=== PATIENT | female | born 1945 | race Caucasian/White ===

== ENCOUNTER → 2016-09-24 | Outpatient (CLI) | payer OTHER ==
[~2016-09-24] MED LIST: ADVIN10/60 INH; AZIT500T26 PO; AZITTAB PO; CLR10 PO; FLUT0.15 NAE; HYDR-5688 PO; IBUP-1105 PO; LEVO1TAB33 PO; LORA-741 PO; MOME200A INH; TRAM-10 PO; VNTHFA/IN INH; ZNTT/150 PO; advair diskus INH; peri-colace PO; prednisone taper PO
[2016-09-24 17:30] LABS: BASO % 0.3 %; BASO ABS # 0.02 K/uL (0-0.2); COMPLETE YES; EOS % 2.2 %; HEMATOCRIT 39.2 % (37-47); IG% 0.1 %; LYMPH % 20.5 %; LYMPH ABS # 1.42 K/uL (1.2-3.4); MEAN CELL VOLUME 90.7 fL (80-100); MEAN CORPUSCULAR HEMOGLOBIN 30.6 pg (25-34); MEAN CORPUSCULAR HGB CONC 33.7 g/dl (32-36); MEAN PLATELET VOLUME 9.5 fL (7.4-10.4); MONO % 5.5 %; NEUT % 71.4 %; PLATELET COUNT 299 K/uL (130-400); RED BLOOD COUNT 4.32 M/uL (4.2-5.4); WHITE BLOOD COUNT 6.91 K/uL (4.8-10.8)
[2016-09-24 17:48] LABS: ALT/SGPT 11 U/L (12-78); BLOOD UREA NITROGEN 16 mg/dl (7-18); BUN/CREATININE RATIO 20.9 (10-20); CALCIUM 8.6 mg/dl (8.5-10.1); CARBON DIOXIDE 27 mmol/L (21-32); CHLORIDE 105 mmol/L (98-107); CHOLESTEROL 212 mg/dl (0-200); CREATININE 0.77 mg/dl (0.60-1.20); GLUCOSE 83 mg/dl (70-99); POTASSIUM 3.5 mmol/L (3.5-5.1); SODIUM 141 mmol/L (136-145)
[2016-09-24 17:52] LABS: ALB/GLOB RATIO 1.2 (0.9-2); ALKALINE PHOSPHATASE 112 U/L (45-117); AST/SGOT 11 U/L (15-37); CHOLESTEROL/HDL RATIO 3.9; HDL CHOLESTEROL 54 mg/dl; LDL CHOLESTEROL CALCULATED 129 mg/dl; TRIGLYCERIDES 145 mg/dl (0-150); VERY LOW DENSITY LIPOPROT CALC 29 mg/dl
--- NOTE | 2016-10-01 09:07 | CODING QUERY MEDICAL NECESSITY ---
CQSUPPORTING DIAGNOSIS NEEDED A supporting diagnosis is required for the test/procedure performed on this patient in order for us to be reimbursed by the patient's insurance. Please provide a supporting diagnosis for the following test/procedure listed below next to the test name along with your signature. *If there is no additional diagnosis for this patient that would support the following test/procedure please document that below next to the test/procedure. Test(s)/Procedure(s) that require a supporting diagnosis: DOS 09/24/16 VITAMINS AND METABOLIC FUNCTION---VITAMIN D Provider Signature: Date: Thank you Debbie Benites Health Information Management Once completed, please kindly fax back to [phone] For questions please call [phone]
== END | disposition home or self-care (01) ==
LOC: C.LABBFT 12:35
PROVIDERS: ATTEND Nurse Practitioner
DX: Z13.220 Encounter for screening for lipoid disorders (principal); R31.29 Other microscopic hematuria; M85.80 Other specified disorders of bone density and structure, unspecified site

== ENCOUNTER → 2016-12-23 | Outpatient (CLI) | payer OTHER ==
[~2016-12-23] MED LIST changes: +ALBU0.633 NEB; +CALC500C3 PO; +PERI-COLACE PO
[2016-12-23 17:51] LABS: RHEUMATOID FACTOR < 10.0 U/mL (0-15)
[2016-12-23 19:23] LABS: LYME DISEASE AB IGM NEG (NEG)
[2016-12-23 19:26] LABS: LYME DISEASE AB IGG NEG (NEG)
[2016-12-28 14:00] LABS: ANA TITER > OR = 1:1280 TITER (<1:40)
--- NOTE | 2017-01-05 13:10 | CODING QUERY MEDICAL NECESSITY ---
CQSUPPORTING DIAGNOSIS NEEDED A supporting diagnosis is required for the test/procedure performed on this patient in order for us to be reimbursed by the patient's insurance. Please provide a supporting diagnosis for the following test/procedure listed below next to the test name along with your signature. *If there is no additional diagnosis for this patient that would support the following test/procedure please document that below next to the test/procedure. Test(s)/Procedure(s) that require a supporting diagnosis: DOS 12/23/16 VITAMIN B12 ORDERED BY GUADALUPE COOPER Provider Signature: Date: Thank you Debbie Benites Health Information Management Once completed, please kindly fax back to [phone] For questions please call [phone]
== END | disposition home or self-care (01) ==
LOC: C.LABBFT 14:03
PROVIDERS: ATTEND Nurse Practitioner
DX: E55.9 Vitamin D deficiency, unspecified (principal); M79.1 Myalgia; M25.50 Pain in unspecified joint; R53.83 Other fatigue

== ENCOUNTER → 2017-01-20 | Outpatient (CLI) | payer OTHER ==
--- NOTE | 2017-01-20 15:22 | DIAGNOSTIC IMAGING REPORT ---
LEFT WRIST 4 VIEWS CLINICAL HISTORY: Long-term NSAID use. Left wrist pain. FINDINGS: 4 views of left wrist are obtained. No prior studies are available for comparison at the time of dictation. The skeletal structures are osteopenic. No fracture is seen. Mild osteoarthritic change is identified at the first carpometacarpal articulation. The joint spaces of the wrist are otherwise preserved. No erosive change is seen. The overlying soft tissues are within normal limits. IMPRESSION: Osteopenia and minimal degenerative change as above. No acute bony abnormality is identified in the left wrist. Electronically signed by: Jerald Dennis M.D. 01/20/2017 3:21 PM Dictated Date/Time: 01/20/2017 3:20 PM
--- NOTE | 2017-01-20 15:23 | DIAGNOSTIC IMAGING REPORT ---
RIGHT WRIST MIN 3 VIEWS ROUTINE CLINICAL HISTORY: Bilateral wrist and hand pain. Long-term NSAID use. COMPARISON: None FINDINGS: Alignment of the right wrist is anatomic. There is no fracture or suspicious lesion. A few scattered lucent lesions with sclerotic margins within the wrist favor cysts. No definite erosions are identified. Minimal arthritis is noted within several articulations. IMPRESSION: 1. 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 2. A few small lucent lesions with sclerotic margins within the right wrist which favor cysts over erosions. Electronically signed by: Balbir Shirley M.D. 01/20/2017 3:21 PM Dictated Date/Time: 01/20/2017 3:20 PM
--- NOTE | 2017-01-20 15:24 | DIAGNOSTIC IMAGING REPORT ---
RIGHT HAND MIN 3 VIEWS ROUTINE CLINICAL HISTORY: Bilateral wrist and hand pain. Long-term NSAID use. COMPARISON: None FINDINGS: No acute fracture is identified. There is moderate joint space narrowing and osteophytosis within multiple distal interphalangeal joints of the right hand. No erosions are identified. IMPRESSION: 1. No acute fracture or dislocation of the right hand. 2. 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 3. No radiographic evidence of an erosive/inflammatory arthropathy. Electronically signed by: Balbir Shirley M.D. 01/20/2017 3:23 PM Dictated Date/Time: 01/20/2017 3:22 PM
--- NOTE | 2017-01-20 15:29 | DIAGNOSTIC IMAGING REPORT ---
LEFT HAND MIN 3 VIEWS ROUTINE CLINICAL HISTORY: Bilateral wrist and hand pain. Long-term NSAID use. COMPARISON: None FINDINGS: Alignment of the left hand is anatomic. No fracture or suspicious lesion is present. There is joint space narrowing and osteophytosis within multiple interphalangeal joints of the left hand. No erosions are identified. Osteophytosis of the interphalangeal joint of the left thumb is noted. IMPRESSION: 1. No acute fracture. 2. Moderate osteoarthritis of multiple articulations of the left hand. 3. No radiographic evidence of erosive/inflammatory arthropathy. Electronically signed by: Balbir Shirley M.D. 01/20/2017 3:27 PM Dictated Date/Time: 01/20/2017 3:26 PM
[2017-01-20 16:08] LABS: TOTAL IRON BINDING CAPACITY 272 mcg/dl (250-450)
[2017-01-25 07:29] LABS: ANTI-CENTROMERE AB <1.0 NEG AI (<1.0 NEG); ANTI-SS-A <1.0 NEG AI (<1.0 NEG); ANTI-SS-B <1.0 NEG AI (<1.0 NEG); DNA ds CRITHIDIA NEGATIVE (NEGATIVE); PARVOVIRUS IgG INDEX 0.5 (<0.9); PARVOVIRUS IgM INDEX 0.1 (<0.9); Sm Antibody <1.0 NEG AI (<1.0 NEG)
[2017-01-26 11:14] LABS: ANA TITER > OR = 1:1280 TITER (<1:40)
== END | disposition home or self-care (01) ==
LOC: C.RAD1850 14:33
PROVIDERS: ATTEND Internal Medicine Rheumatology
DX: Z79.1 Long term (current) use of non-steroidal anti-inflammatories (NSAID) (principal); M19.041 Primary osteoarthritis, right hand; M19.042 Primary osteoarthritis, left hand; M85.88 Other specified disorders of bone density and structure, other site; R22.31 Localized swelling, mass and lump, right upper limb

== ENCOUNTER → 2017-03-23 | Outpatient (CLI) | payer OTHER ==
[~2017-03-23] MED LIST changes: -ALBU0.633 NEB; -CALC500C3 PO; -PERI-COLACE PO
== END | disposition home or self-care (01) ==
LOC: C.MAMM 12:56
PROVIDERS: ATTEND Internal Medicine Rheumatology
DX: M85.80 Other specified disorders of bone density and structure, unspecified site (principal); M81.0 Age-related osteoporosis without current pathological fracture

== ENCOUNTER → 2017-04-05 | Outpatient (CLI) | payer OTHER ==
--- NOTE | 2017-04-05 12:56 | DIAGNOSTIC IMAGING REPORT ---
CT LUNG SCREENING, LOW DOSE WITH COMPUTER-AIDED DETECTION (CAD) CLINICAL HISTORY: Smoking history. Lung cancer screening. COMPARISON STUDY: No previous studies for comparison. CT DOSE: 86.25 mGycm TECHNIQUE: Low-dose helical CT was acquired without intravenous contrast from lung apices to bases and reconstructed at 2.5 mm every 2 mm. CAD was utilized for this study. A dose lowering technique was utilized adhering to the principles of ALARA. FINDINGS: Thyroid: Imaged portions of the thyroid gland are normal in appearance. Thoracic aorta: There is after sclerotic calcification of the thoracic aorta, with is normal in caliber and demonstrates standard 3 vessel arch anatomy. Heart: The heart is normal in size and there is trace pericardial effusion. The coronary arteries are densely calcified. Lungs and pleural spaces: Emphysema is identified. A fat-containing Bochdalek hernia is present the right lung base. There is no airspace consolidation or pleural effusion. Minimal secretions are noted in the right mainstem bronchus. Intraluminal nodularity is seen within the left mainstem bronchus on image #145. The trachea is clear. Linear atelectasis versus scarring is noted in the anterior right upper lobe. There is an 8 mm groundglass focus in the left lower lobe seen on image #190 and a 6 cm groundglass focus in the left upper lobe seen on image #78. A 2 mm right upper lobe nodule is seen on image #105. Mediastinum: There is no mediastinal lymphadenopathy. Susan: Not well assessed without IV contrast. Axilla: There is right axillary lymphadenopathy. The largest node is seen on image #59 and measures 3.3 x 2.7 cm. No left axillary adenopathy is seen. Upper abdomen: There is a tiny hiatal hernia. The spleen is markedly enlarged. Skeletal structures: The skeletal structures are osteopenic. Advanced arthritic change is seen in the shoulders. Degenerative change is also seen throughout the thoracic spine. There are no lytic or blastic osseous lesions. IMPRESSION: 1. There is marked splenomegaly as well as bulky right axillary lymphadenopathy. This constellation of findings is highly concerning for a lymphoproliferative disorder such as lymphoma. Follow-up imaging of the right breast is recommended given the right axillary involvement. 2. Emphysema. 3. There is no airspace consolidation or pleural effusion. 4. There are 2 small groundglass foci identified as well as a 2 mm pulmonary nodule. These findings be reassessed at follow-up. See below. 5. Intraluminal nodularity seen within the left mainstem bronchus. Although this may simply represent secretions, attention at follow-up is recommended. If clinically warranted short-term follow-up CT scan versus bronchoscopy could be considered for reassessment. CAD FINDINGS: Nodule 1 Category: 2 Nodule 1 Status: Baseline Nodule 1 Description: Non-solid Nodule 1 Lesion ID: 9 Nodule 1 Slice Number: 83 Nodule 1 Volume (mm3): 84 Nodule 1 Major [place] mm: 7.2 Nodule 1 Minor [place] mm: 5.5 Nodule 2 Category: 2 Nodule 2 Status: Baseline Nodule 2 Description: Solid Nodule 2 Lesion ID: 6 Nodule 2 Slice Number: 126 Nodule 2 Volume (mm3): 4 Nodule 2 Major [place] mm: 2.2 Nodule 2 Minor [place] mm: 2.2 Nodule 3 Category: 2 Nodule 3 Status: Baseline Nodule 3 Description: Non-solid Nodule 3 Lesion ID: 8 Nodule 3 Slice Number: 141 Nodule 3 Volume (mm3): -1 Nodule 3 Major [place] mm: -1.0 Nodule 3 Minor [place] mm: -1.0 Overall Lung RADS Category: 2 Lung RADS Management Recommendation: Lung-RADS 2: Continue annual screening in 12 months. Lung RADS Follow Up Date: 2018-04-05 Lung RADS Nodule ID: [id number] Electronically signed by: Jerald Dennis M.D. 04/05/2017 12:55 PM Dictated Date/Time: 04/05/2017 12:39 PM
== END | disposition home or self-care (01) ==
LOC: C.CTS 11:02
PROVIDERS: ATTEND Nurse Practitioner
DX: Z87.891 Personal history of nicotine dependence (principal); R22.31 Localized swelling, mass and lump, right upper limb; J43.9 Emphysema, unspecified

== ENCOUNTER → 2017-04-09 | Outpatient (CLI) | payer OTHER ==
[2017-04-09 17:33] LABS: BASO % 0.2 %; BASO ABS # 0.02 K/uL (0-0.2); COMPLETE YES; HEMATOCRIT 36.3 % (37-47); IG% 0.1 %; LYMPH % 10.7 %; LYMPH ABS # 0.92 K/uL (1.2-3.4); MEAN CORPUSCULAR HEMOGLOBIN 28.7 pg (25-34); MEAN CORPUSCULAR HGB CONC 32.2 g/dl (32-36); MEAN PLATELET VOLUME 9.5 fL (7.4-10.4); MONO % 6.5 %; NEUT % 80.5 %; PLATELET COUNT 163 K/uL (130-400); RED BLOOD COUNT 4.08 M/uL (4.2-5.4); WHITE BLOOD COUNT 8.56 K/uL (4.8-10.8)
[2017-04-09 17:39] LABS: ALT/SGPT 14 U/L (12-78); CREATININE 0.69 mg/dl (0.60-1.20)
[2017-04-09 17:42] LABS: ALKALINE PHOSPHATASE 170 U/L (45-117); AST/SGOT 27 U/L (15-37)
== END | disposition home or self-care (01) ==
LOC: C.LABBFT 12:22
PROVIDERS: ATTEND Internal Medicine Rheumatology
DX: R76.8 Other specified abnormal immunological findings in serum (principal); M13.0 Polyarthritis, unspecified; R70.0 Elevated erythrocyte sedimentation rate; Z51.81 Encounter for therapeutic drug level monitoring; Z79.899 Other long term (current) drug therapy

== ENCOUNTER → 2017-04-14 | Outpatient (CLI) | payer OTHER ==
--- NOTE | 2017-04-14 16:01 | MAMMOGRAPHY REPORT ---
BILATERAL DIGITAL DIAGNOSTIC MAMMOGRAM TOMOSYNTHESIS WITH CAD AND TARGETED RIGHT ULTRASOUND: 7 CLINICAL HISTORY: The patient reports a palpable right axillary lump. She also had a recent chest CT which showed right axillary adenopathy and splenomegaly. She has a history of rheumatoid arthritis and lupus. TECHNIQUE: Breast tomosynthesis in addition to standard 2D mammography was performed. Current study was also evaluated with a Computer Aided Detection (CAD) system. Bilateral CC and MLO 2-D and tomosy nthesis images and spot compression right MLO views were obtained. COMPARISON: Comparison is made to exams dated: 12/12/2012 mammogram, 07/25/2009 mammogram, and 07/25/20 mammogram. BREAST COMPOSITION: There are scattered areas of fibroglandular density in both breasts. FINDINGS: A triangle marker julien the site of the palpable lump in the right axillary region. At th e site of the palpable lump there are abnormally enlarged right axillary lymph nodes, the largest mayela suring 4.6 cm in size. The remainder of both breasts are negative, without suspicious masses, calcif ications, or areas of architectural distortion noted. A few scattered bilateral benign-appearing pilar cifications are again noted. Targeted ultrasound was performed of the area of the right axilla in the region of the palpable lump. At the site of the palpable lump there is an abnormally enlarged right axillary lymph node which me asures 4.0 x 2.2 cm. The lymph node demonstrates significant cortical thickening. Other adjacent mo rphologically abnormal right axillary lymph nodes are also seen, which are abnormally rounded in shap e and demonstrate cortical thickening and had loss of the normal fatty hilum. One of the lymph nodes measures 1.2 cm while another measures 1.1 cm. The lymph nodes are indeterminate and ultrasound ann ded core needle biopsy of the dominant lymph nodes is recommended for further evaluation. IMPRESSION: ACR BI-RADS CATEGORY 4: SUSPICIOUS, TARGETED ULTRASOUND ACR BI-RADS CATEGORY 4: SUSPICIO US 1. Right axillary adenopathy, with largest lymph node measuring 4.0 cm in size. The lymph nodes are indeterminate and ultrasound guided core needle biopsy of the dominant lymph node is recommended for further evaluation. 2. No mammographic evidence of malignancy in either breast. A phone call was made to the physician's office to confirm faxed results were received. Results were discussed with Dr. Lang on 04/14/2017. The patient will have the biopsy later today. Approximately 10% of breast cancers are not detected with mammography. A negative mammographic report should not delay biopsy if a clinically suggestive mass is present. Rosalba Hillman M.D. ah/:04/14/2017 12:42:00 Newsperson: Rowena PUGH)(Henny), [facility] BI-RADS Code: ACR BI-RADS Category 4: Suspicious Ultrasound BI-RADS: ACR BI-RADS Category 4: Suspici ous
== END | disposition home or self-care (01) ==
LOC: C.MAMM 11:01
PROVIDERS: ATTEND Nurse Practitioner
DX: R59.0 Localized enlarged lymph nodes (principal)

== ENCOUNTER → 2017-04-14 | Outpatient (CLI) | payer OTHER ==
--- NOTE | 2017-04-14 15:32 | Discharge Instructions ---
Discharge Instructions Procedure Procedure Date: Apr 14, 2017. Reason for visit: Right Axillary Lump. Discharge Discharge Date: Apr 14, 2017. Discharge Diagnosis: post right axillary lymph node biopsy Instructions Activity Recommendations: Additional Limitations (see below) Return to School/Work: no limitations Recommended Home Diet: No Limitations Provider Instructions: ACTIVITY RECOMMENDATIONS: * No lifting, pushing, pulling or exercising the affected side for three days. RETURN TO SCHOOL/WORK: * You may return to work/school after the procedure, but do not perform any strenuous activities for 24 to 48 hours. MEDICATIONS: * Tylenol (two 325 mg) every four to six hours if needed for mild pain (if not allergic to Tylenol). DIET: * Resume previous diet. SPECIAL CARE INSTRUCTIONS: * Keep biopsy site dry for 24 hours. May shower after 24 hours, but do not soak (bathe) incision. * May remove Tegaderm (plastic patch) tomorrow AFTER showering. * Leave the steri-strips on for one week. Allow the steri-strips to fall off by themselves. If not off after one week, you may remove them. You may place a Bandaid crosswise over the strips, if desired. * Apply ice 10 minutes on and 10 minutes off as needed. * Wear a bra at bedtime to sleep more comfortably for 2-3 days. * Your referring physician should have the results after approximately 5 to 7 business days. * Call for unusual bleeding, fever, drainage, etc or if you have any questions call [phone] during normal business hours or after hours call Dr Clemens, . FOLLOW UP VISIT: Follow-up with Referring Physician as scheduled. Allergies Coded Allergies: Iodine (Verified Allergy, Unknown, RASH AND DIFFICULTY BREATHING, 06/29/16) Adan Beltran Recommendations: Call your doctor if: * Temperature above 101 degrees * Pain not relieved by pain medicine ordered * There is increased drainage or redness from any incision * You have any unanswered questions or concerns. Your Doctors Instructions noted above were prepared by provider Shy Clemens. Patient Signature Section: Patient Instructions Signature Page Diamond Benson Patient (or Guardian) Signature/Date: I have read and understand the instructions given to me by my caregivers. Caregiver/RN/Doctor Signature/Date: The above-named patient and/or guardian has received patient instructions on this date. + Original Patient Signature Page (only) stays with chart. Please make copy for patient.
--- NOTE | 2017-04-15 13:58 | MAMMOGRAPHY REPORT ---
ULTRASOUND GUIDED BIOPSY RIGHT BREAST: 04/14/2017 CLINICAL HISTORY: Palpable lump in the right axilla. Also suspicious lymph node identified on recent CT. Patient presented for tissue sampling. COMPARISON: Comparison is made to exams dated: 04/14/2017 mammogram - [facility], 1 08/28/2013 mammogram, 12/12/2012 mammogram, 07/25/2009 mammogram, and 07/25/2009 mammogram. PATIENT CONSENT: The procedure, risks and benefits were discussed with the patient and informed conse nt was obtained both verbally and in writing. Specific risks to this procedure include: bleeding, in fection, puncture of adjacent structure, nontarget biopsy, sampling error, pain, metal allergy and me dication reaction. PROCEDURE DESCRIPTION: A time out was performed and the abnormal lymph node in the right axilla was a greed as the site of biopsy. The skin of the right axilla was prepped and draped in the usual sterile fashion. The abnormal lymph node was identified and chosen as target for biopsy. Subcutaneous and i ntraparenchymal 1% buffered lidocaine, with and without epinephrine, was administered as local anesth esia. First, 3 fine-needle aspiration biopsy passes were obtained with 22-gauge needles and rinsed i n RPMI. Then, a skin incision was made. Through the incision, 3 samples were taken with an 18 gauge quick core biopsy device. A ribbon shaped metallic marker was placed within the lymph node after the biopsies. Hemostasis was achieved after manual compression. The patient tolerated the procedure wel l and there was no immediate complication. The samples were sent to the pathology department in appr opriately labeled containers. The final sonographic image obtained during the biopsy demonstrates the ribbon-shaped clip within the lymph node. Post procedure mammography was deferred. Additional targeted ultrasound was performed in the left axilla at the patient's request. 2 morpholo gically normal lymph nodes within cortices are identified. There is no evidence of suspicious left a xillary lymphadenopathy. IMPRESSION: ULTRASOUND GUIDED BIOPSY Status post ultrasound-guided core needle biopsy and ultrasound-guided fine-needle aspiration biopsy of a morphologically abnormal lymph node in the right axilla. A biopsy marker was placed within the lymph node after the biopsies. The patient will receive notification of the results from her referring physician. Shy Clemens M.D. ay/:04/14/2017 16:04:09 Fixed Interest Dealer: Drake RUTHERFORD(R)(M), [facility]
== END | disposition home or self-care (01) ==
LOC: C.MAMM 14:08
PROVIDERS: ATTEND Nurse Practitioner
DX: N63 Unspecified lump in breast (principal); D47.9 Neoplasm of uncertain behavior of lymphoid, hematopoietic and related tissue, unspecified; R59.0 Localized enlarged lymph nodes

== ENCOUNTER → 2017-04-21 | Outpatient (CLI) | payer OTHER ==
--- NOTE | 2017-04-21 12:59 | DIAGNOSTIC IMAGING REPORT ---
PET/CT HISTORY: Axillary lymphadenopathy. SINGLE PULMONARY NODULE TECHNIQUE: PET/CT was performed from the base of the skull through the pelvis following the intravenous administration of 14.7 mCi of F18-FDG. Non-contrast CT imaging was performed over the same range without breath-hold for attenuation correction of PET images and anatomic correlation, but not for primary interpretation as it is not of standard diagnostic quality. CT DOSE: COMPARISON: Chest CT 04/05/2017. FINDINGS: HEAD AND NECK: There is no significant lymphadenopathy in the imaged portions of the head and the neck. CHEST: Intense FDG uptake associated with the 3.6 x 2.3 cm right axillary lymph node. This demonstrates an SUV max of 20. There are 2 left internal mammary lymph nodes with the largest measuring 2.0 x 1.2 cm. These demonstrate abnormal FDG uptake with an SUV max of 11. There is also intense FDG uptake associated with the enlarged subcarinal lymph node which demonstrates an SUV max of 12. This lymph node measures 2.5 x 1.9 cm. No FDG avid hilar lymphadenopathy. No FDG avid pulmonary nodules. The subcentimeter nodules described on the recent chest CT appear stable. These are likely below the threshold for PET imaging. ABDOMEN/PELVIS: Trace perisplenic fluid. The spleen remains enlarged measuring 21 cm in length. There is intense FDG uptake within the spleen with an SUV max of 10. This results in medial displacement of the stomach and mild mass effect along the left kidney. A few subcentimeter retroperitoneal lymph nodes do not demonstrate abnormal FDG uptake. Subcentimeter external iliac lymph nodes do not demonstrate significant FDG uptake. Small amount of fluid/soft tissue within the left inguinal hernia. There is also a small fat-containing right inguinal hernia. MUSCULOSKELETAL: Multiple scattered foci of FDG uptake seen within the spine, ribs, and pelvic bones. No definite corresponding abnormality by CT, regardless these are highly suspicious for metastatic marrow involvement. Dominant focus is partially visualized within the left C1 lateral mass and measures 1.5 cm with an SUV max of 4.6. IMPRESSION: 1. A few lymph nodes within the right axilla and chest as well as massive splenomegaly demonstrating intense FDG uptake. This is consistent with lymphoma. 2. There are also multiple focal areas of FDG uptake seen within the osseous structures as described above. There is no corresponding abnormality by CT. Regardless, this is consistent with metastatic/marrow involvement. Electronically signed by: Gaudencio Shah M.D. 04/21/2017 12:58 PM Dictated Date/Time: 04/21/2017 12:20 PM
== END | disposition home or self-care (01) ==
LOC: C.PET 10:30
PROVIDERS: ATTEND Internal Medicine Pulmonary Disease
DX: R91.1 Solitary pulmonary nodule (principal)

== ENCOUNTER → 2017-04-28 | Outpatient (CLI) | payer OTHER ==
[2017-04-28 16:40] LABS: BASO % 0.4 %; BASO ABS # 0.03 K/uL (0-0.2); COMPLETE YES; HEMATOCRIT 36.6 % (37-47); IG% 0.4 %; LYMPH % 20.3 %; LYMPH ABS # 1.74 K/uL (1.2-3.4); MEAN CELL VOLUME 89.1 fL (80-100); MEAN CORPUSCULAR HGB CONC 31.4 g/dl (32-36); MEAN PLATELET VOLUME 9.4 fL (7.4-10.4); MONO % 4.8 %; NEUT % 72.1 %; PLATELET COUNT 239 K/uL (130-400); RED BLOOD COUNT 4.11 M/uL (4.2-5.4); WHITE BLOOD COUNT 8.56 K/uL (4.8-10.8)
[2017-04-28 16:47] LABS: PROTHROMBIN TIME (PATIENT) 10.4 SECONDS (9.0-12.0)
[2017-04-28 17:06] LABS: ALT/SGPT 11 U/L (12-78); AST/SGOT 21 U/L (15-37); BLOOD UREA NITROGEN 10 mg/dl (7-18); BUN/CREATININE RATIO 14.4 (10-20); CARBON DIOXIDE 28 mmol/L (21-32); CHLORIDE 107 mmol/L (98-107); CREATININE 0.68 mg/dl (0.60-1.20); GLUCOSE 87 mg/dl (70-99); POTASSIUM 3.9 mmol/L (3.5-5.1); SODIUM 141 mmol/L (136-145)
[2017-04-28 17:08] LABS: ALKALINE PHOSPHATASE 161 U/L (45-117)
== END | disposition home or self-care (01) ==
LOC: C.LABBFT 14:30
PROVIDERS: ATTEND Internal Medicine Pulmonary Disease
DX: R91.1 Solitary pulmonary nodule (principal)

== ENCOUNTER → 2017-05-03 | Day surgery (SDC) | payer OTHER ==
[~2017-05-03] VITALS: Ht 162.6 cm; Wt 65.0 kg
[2017-05-03] VITALS (14 sets, daily range): BP systolic 105–152; BP diastolic 50–85; PULSE 77–92; TEMP 36.4–37; O2SAT 94–100; Ht 162.6 cm; Wt 65.0 kg
[~2017-05-03] MED LIST changes: +FENTANYL CITRATE 100 MCG 2 ML CARP IV ONE; +FENTANYL CITRATE INJ 50 MCG/1 ML 2 ML VIAL IV SCH; +IPRATROPIUM BROMIDE NEB SOLN 0.02% 2.5 ML VIAL INH ONE; +LEVALBUTEROL 1.25MG/3ML NEB INH ONE; +MIDAZOLAM HCL 5 MG/ML 1 ML VIAL IV SCH; +MIDAZOLAM HCL 5 MG/ML 2ML VIAL IV ONE; +NURSING VERBAL MED ORDER ONE
--- NOTE | 2017-05-03 08:24 | History & Physical Bridge Note ---
H&P Re-Evaluation Bridge Note: I have examined the patient, reviewed the History & Physical and in the interval since the performance of the History & Physical I have noted the following changes of clinical significance: No changes noted
--- NOTE | 2017-05-03 08:25 | Procedure Note ---
Pre-Mod Sedation Assessment General Date of Moderate Sedation: May 03, 2017. Pre-Sedation Airway Assessment Smoking Status: Current Every Day Smoker Mallampati Classification: Class II ASA Classification: Class II Procedure Planning Contraindications-for Mod Sed: None Yes Notes The planned sedation has been discussed with the patient and consent obtained. I have identified the patient, determined the appropriateness of sedation and have assessed the patient immediately prior to the procedure. All medicine(s) and interventions are by my order.
--- NOTE | 2017-05-03 11:47 | Discharge Instructions ---
Discharge Instructions Date of Service May 03, 2017. Admission Reason for Admission: Chronic Bronchitis, Pulmonary Nodule Discharge Discharge Diagnosis / Problem: Chronic Mucopurulent Bronchitis/B cell lymphoma Discharge Goals Goal(s): Diagnostic testing, Therapeutic intervention Activity Recommendations Activity Limitations: resume your previous activity Lifting Limitations: none Exercise/Sports Limitations: none May Resume Sexual Activity: when tolerated Shower/Bathe: no limitations Driving or Machine Use: resume 1 day after discharge None . Instructions / Follow-Up Instructions / Follow-Up ACTIVITY RECOMMENDATIONS: * Rest today, resume normal activity tomorrow. * Do not drive today. SPECIAL CARE INSTRUCTIONS: * Call your physician if you experience any chest or shoulder pain, fever, coughing, spitting up blood (more than 2 teaspoons) or excessive shortness of breath. * Remove dressing from IV site (where needle was placed into the vein) after 2 hours. Apply a warm, moist compress to site if irritation occurs. Call physician if site becomes red or painful to touch. FOLLOW UP VISIT: * Keep any scheduled doctor appointments. Current Hospital Diet regularPatient's current hospital diet: Discharge Diet Recommended Diet: Regular Diet Fluid Restriction: None Pending Studies Studies pending at discharge: no Medical Emergencies . Who to Call and When: Medical Emergencies: If at any time you feel your situation is an emergency, please call 911 immediately. . Non-Emergent Contact Non-Emergency issues call your: Tobacco Grader Call Non-Emergent contact if: temperature is above 101 . . "Provider Documentation" section prepared by Earle Lang. . VTE Core Measure Inpt VTE Proph given/why not?: Treatment not indicated
--- NOTE | 2017-05-03 21:05 | OPERATIVE REPORT ---
DATE OF OPERATION: 05/03/2017 PROCEDURE: Fiberoptic bronchoscopy with bronchoalveolar lavage with and without transbronchial biopsy. INDICATION: History B cell lymphoma and intratracheal/endobronchial lesion. ANESTHESIA PREOPERATIVELY: None. ANESTHESIA DURING THE PROCEDURE: 8 mg IV Versed, 100 mcg IV fentanyl, 20 mL 2% Xylocaine spray above and below the cords, and 4% viscous Xylocaine intranasally. DESCRIPTION OF PROCEDURE: Fiberoptic bronchoscope was inserted into the right naris with minimal difficulty and passed to the level of the true vocal cords. The cords appeared to approximate normally with phonation without evidence of lesions or paralysis. The area was anesthetized with 2% Xylocaine spray and the scope was then introduced into the trachea and right and left tracheobronchial tree. The noni was sharp. The right main stem bronchus was found to be free of endobronchial lesions. The right upper lobe, the apical posterior and anterior segments, bronchus intermedius, right middle lobe, medial lateral segments and all basilar segments of right lower lobe were found to be free of endobronchial lesions. A moderate degree of global inflammatory mucosal change was seen consistent with the diagnosis of chronic bronchitis. The scope was then withdrawn into the trachea. No obvious intratracheal lesion was seen. The scope was then introduced into the left main stem bronchus and thick amount of mucopurulent secretion was adherent to the medial wall of the left main stem bronchus approximately 1.5-2 cm below the noni. This was lavaged until clear. The left upper lobe, the apical-posterior and anterior segments, and lingular subdivision of left lower lobe were free of endobronchial lesions down to subsegmental bronchi. The scope was then removed and there were no obvious lesions visible to biopsy or brushings and the scope was then removed and the patient was administered a nebulizer treatment with Xopenex 1.25 mg and transferred to the medical treatment unit hemodynamically stable with no signs of respiratory compromise. We will await microbiological and cytologic examination of the bronchial washings. I attest to the content of the Intraoperative Record and any orders documented therein. Any exception s are noted below.
== END | disposition home or self-care (01) ==
LOC: C.ACU 07:38
PROVIDERS: ATTEND Internal Medicine Pulmonary Disease
DX: J42 Unspecified chronic bronchitis (principal); R91.1 Solitary pulmonary nodule; J01.00 Acute maxillary sinusitis, unspecified; M25.50 Pain in unspecified joint; R59.0 Localized enlarged lymph nodes; E55.9 Vitamin D deficiency, unspecified; R16.1 Splenomegaly, not elsewhere classified; R91.8 Other nonspecific abnormal finding of lung field; C85.10 Unspecified B-cell lymphoma, unspecified site; Z86.010 Personal history of colon polyps; Z90.710 Acquired absence of both cervix and uterus; Z87.891 Personal history of nicotine dependence; Z80.1 Family history of malignant neoplasm of trachea, bronchus and lung; Z80.3 Family history of malignant neoplasm of breast

== ENCOUNTER → 2017-05-13 | Outpatient (CLI) | payer OTHER ==
[~2017-05-13] MED LIST changes: -FENTANYL CITRATE 100 MCG 2 ML CARP IV ONE; -FENTANYL CITRATE INJ 50 MCG/1 ML 2 ML VIAL IV SCH; -IPRATROPIUM BROMIDE NEB SOLN 0.02% 2.5 ML VIAL INH ONE; -LEVALBUTEROL 1.25MG/3ML NEB INH ONE; -MIDAZOLAM HCL 5 MG/ML 1 ML VIAL IV SCH; -MIDAZOLAM HCL 5 MG/ML 2ML VIAL IV ONE; -NURSING VERBAL MED ORDER ONE
== END | disposition home or self-care (01) ==
LOC: C.CPL 14:43
PROVIDERS: ATTEND Surgery
DX: Z01.810 Encounter for preprocedural cardiovascular examination (principal); R22.31 Localized swelling, mass and lump, right upper limb; R59.0 Localized enlarged lymph nodes

== ENCOUNTER → 2017-05-21 | Day surgery (SDC) | payer OTHER ==
[2017-05-13 14:00] VITALS: Ht 162.6 cm; Wt 65.0 kg
[~2017-05-21] VITALS: Ht 162.6 cm; Wt 65.0 kg
[~2017-05-21] MED LIST changes: +ATROPINE SULFATE 0.1 MG/ML 5ML SYR IV PRN; -AZITTAB PO; +CEFAZOLIN 1000MG/55 ML D5W IV SCH; -CLR10 PO; +DEXAMETHASONE SOD INJ 4 MG/ML VIAL ONE; +EpHEDrine SULFATE INJ 50 MG/ML AMP IV PRN; +FENTANYL CITRATE INJ 50 MCG/1 ML 2 ML VIAL IV PRN; +FENTANYL CITRATE INJ 50 MCG/1 ML 2 ML VIAL ONE; +HYDROCODONE/ACETAMOPHEN 5/325MG TAB PO PRN; +LACTATED RINGER'S 1000ML 1,000 ML IV SCH; +LIDOCAINE HCL 2% 2 ML VIAL (20MG/ML) ONE; +LIDOCAINE/EPINEPHRINE 1% INJ 50 ML VIAL ONE; +MIDAZOLAM HCL 1 MG/ML 2ML VIAL ONE; -MOME200A INH; +ONDANSETRON INJ 2 MG/ML 2 ML VIAL IV PRN; +ONDANSETRON INJ 2 MG/ML 2 ML VIAL ONE; +PROPOFOL IV EMULSION 10 MG/ML 20 ML VIAL IV ONE; +SODIUM CHLORIDE 0.9% 1000ML 1,000 ML IV SCH; -ZNTT/150 PO; -advair diskus INH; -peri-colace PO; -prednisone taper PO
--- NOTE | 2017-05-21 10:26 | History & Physical Bridge Note ---
H&P Re-Evaluation Bridge Note: I have examined the patient, reviewed the History & Physical and in the interval since the performance of the History & Physical I have noted the following changes of clinical significance: had needle LOC this AM...was told node is smaller...otherwise no new issues. ok to proceed.
--- NOTE | 2017-05-21 11:23 | Discharge Instructions-SurgCtr ---
Discharge Instructions Date of Service May 21, 2017. Visit Reason for Visit: Axillary Lump,Right Discharge Discharge Diagnosis / Problem: Axillary Lump, Right Discharge Goals Goal(s): Decrease discomfort, Improve function Activity Recommendations Activity Limitations: as noted below Lifting Limitations: no more than 10 pounds Exercise/Sports Limitations: until after follow-up appointment May Resume Sexual Activity: after follow-up appointment Shower/Bathe: tomorrow Driving or Machine Use: resume 1 day after discharge Anesthesia . Post Anesthesia Instructions: If you have had General Anesthesia or IV Sedation: * Do not drive today. * Resume driving when surgeon permits. * Do not make important decisions or sign legal documents today. * Call surgeon for: 1. Temperature elevations greater than 101 degrees F. 2. Uncontrollable pain. 3. Excessive bleeding. 4. Persistent nausea and vomiting. 5. Medication intolerance (nausea, vomiting or rash). * For nausea and vomiting use only clear liquids such as: tea, soda, bouillon until nausea subsides, then gradually increase diet as tolerated. * If you have any concerns or questions, call your surgeon's office. If physician is unavailable and it is an emergency, call 911 or go to the nearest emergency room. . Instructions / Follow-Up Instructions / Follow-Up Please follow-up with Dr. Bettencourt in the office in 1-2 weeks. Please call the office to make a follow-up appointment if you do not have one already. Please call the office with any questions or concerns at [phone]. Diet Recommendations Home Diet: no limitations, resume previous diet Procedures Procedures Performed: Right Axillary Excisional Lymph Node Biopsy with Needle Localization Pending Studies Studies pending at discharge: yes List of pending studies: Pathology report. Medical Emergencies . Who to Call and When: Medical Emergencies: If at any time you feel your situation is an emergency, please call 911 immediately. . Non-Emergent Contact Non-Emergency issues call your: Primary Care Provider, Surgeon Call Non-Emergent contact if: temperature is above 101.5, your pain is not controlled, wound has increased drainage, wound has increased redness . . "Provider Documentation" section prepared by Carina Vegas. . [place] Drug Monitoring Program Search Results: patient reviewed within database, no issues identified
--- NOTE | 2017-05-21 11:34 | [facility] Operative Report ---
Operative Report Operative Date May 21, 2017. Pre-Operative Diagnosis Right Axillary Lump/lymphadenopathy Post-Operative Diagnosis Same Procedure(s) Performed Right Axillary Excisional Lymph Node Biopsy with Needle Localization Surgeon Dr Bettencourt Websphere Portal Developer Surgeon(s) Henny Bates PA-C Estimated Blood Loss 5 ML Findings enlarged right axillary lymph node Specimens A: Right Axillary Lymph Node Excisional Biopsy Anesthesia LMA Complication(s) None Disposition Recovery Room / PACU Description of Procedure Prior to being brought to the operating room the patient had been to radiology and undergone a needle localization of the right axillary lymph node. This went without incident. She was then brought to the operating room and placed in supine position. The wire itself was shortened with wire cutters and then the right axilla was sterilely prepped and draped in usual fashion. An Incision directly above the wire was made with a 15 blade scalpel and carried down through the soft tissue using electrocautery. We continued to use electrocautery with traction and countertraction to come around the guidewire and follow it down to the obvious enlarged lymph node. We came around the lymph node in 360 and excised it in one piece. It was sent off to pathology. Any small bleeding points were controlled using electrocautery. We thoroughly irrigated the wound. There were no other visible or palpable lymph nodes. We did a final irrigation and closed the wound in multiple layers using 2-0 Vicryl for the deep layers and 4-0 Monocryl for the skin. Marcaine was injected around the incision for postoperative analgesia. Benzoin and Steri-Strips were used as a dressing. The patient was awaken extubated and transferred recovery in stable condition I attest to the content of the Intraoperative Record and any orders documented therein. Any exceptions are noted below.
[2017-05-21 12:09] VITALS: TEMP 37.1
--- NOTE | 2017-05-21 12:22 | Anesthesia Progress Nt - [facility] ---
Anesthesia Post Op Note Date & Time May 21, 2017 at 12:22 Vital Signs Pain Intensity: 4 Vital Signs Past 12 Hours Date Time Temp Pulse Resp B/P (MAP) Pulse Ox O2 Delivery O2 Flow Rate FiO2 05/21/17 12:09 37.1 87 16 117/71 (86) 96 Room Air 05/21/17 11:58 36.9 82 16 119/59 96 Room Air 05/21/17 11:52 88 23 94 05/21/17 11:52 88 23 05/21/17 11:51 135/55 05/21/17 11:47 88 22 95 05/21/17 11:47 91 22 05/21/17 11:46 139/59 05/21/17 11:42 25 05/21/17 11:42 86 25 05/21/17 11:41 132/53 05/21/17 11:37 87 18 100 05/21/17 11:37 87 18 05/21/17 11:36 87 16 05/21/17 11:36 86 16 131/58 100 05/21/17 11:35 134/58 05/21/17 11:32 135/ 05/21/17 11:31 89 20 98 05/21/17 11:31 90 20 05/21/17 11:26 88 14 05/21/17 11:26 88 14 137/61 100 05/21/17 11:23 127/51 05/21/17 11:21 37.3 93 12 127/57 98 Mask 05/21/17 08:30 37.1 87 18 144/71 (95) 97 Room Air Notes Mental Status: alert / awake / arousable, participated in evaluation Pt Amnestic to Procedure: Yes Nausea / Vomiting: adequately controlled Pain: adequately controlled Airway Patency, RR, SpO2: stable & adequate BP & HR: stable & adequate Hydration State: stable & adequate Anesthetic Complications: no major complications apparent
[2017-05-21 12:45] VITALS: BP 145/74; PULSE 89; O2SAT 96
--- NOTE | 2017-05-21 14:54 | MAMMOGRAPHY REPORT ---
NEEDLE LOCALIZATION RIGHT BREAST: 05/21/2017 CLINICAL HISTORY: Recent ultrasound guided biopsy of an abnormal right axillary lymph node which yiel ded lymphoma. PROCEDURE DESCRIPTION: With ultrasound guidance, aseptic technique, and 1% lidocaine as the local ane sthetic, the dominant abnormal right axillary lymph node was localized using a 5 cm Ralph II needle . The lymph node is located along the distal portion of the wire, with the hook seen within the lymp h node on ultrasound. The needle was removed. The patient tolerated the procedure without complicat ion. COMPARISON: Comparison is made to exams dated: 04/14/2017 ultrasound, 04/14/2017 mammogram - [facility], 06/28/2014 mammogram, 12/12/2012 mammogram, 07/25/2009 mammogram, and 07/25/2009 [facility] mogram. IMPRESSION: NEEDLE LOCALIZATION Ultrasound guided needle localization of the abnormal right axillary lymph node. Rosalba Hillman M.D. ah/:05/21/2017 09:03:37 Rotary Planer Set Up Operator: Drake RUTHERFORD(R)(M), [facility]
== END | disposition home or self-care (01) ==
LOC: X.SURG 07:56
PROVIDERS: ATTEND Surgery
DX: C83.34 Diffuse large B-cell lymphoma, lymph nodes of axilla and upper limb (principal); J44.9 Chronic obstructive pulmonary disease, unspecified; F17.200 Nicotine dependence, unspecified, uncomplicated; C83.31 Diffuse large B-cell lymphoma, lymph nodes of head, face, and neck; E55.9 Vitamin D deficiency, unspecified; Z86.010 Personal history of colon polyps; Z85.828 Personal history of other malignant neoplasm of skin; Z90.710 Acquired absence of both cervix and uterus; G90.50 Complex regional pain syndrome I, unspecified

== ENCOUNTER → 2017-06-03 | Outpatient (CLI) | payer OTHER ==
[~2017-06-03] MED LIST changes: +ALBU0.633 NEB; -ATROPINE SULFATE 0.1 MG/ML 5ML SYR IV PRN; -CEFAZOLIN 1000MG/55 ML D5W IV SCH; -DEXAMETHASONE SOD INJ 4 MG/ML VIAL ONE; -EpHEDrine SULFATE INJ 50 MG/ML AMP IV PRN; -FENTANYL CITRATE INJ 50 MCG/1 ML 2 ML VIAL IV PRN; -FENTANYL CITRATE INJ 50 MCG/1 ML 2 ML VIAL ONE; -HYDR-5688 PO; -HYDROCODONE/ACETAMOPHEN 5/325MG TAB PO PRN; -LACTATED RINGER'S 1000ML 1,000 ML IV SCH; -LEVO1TAB33 PO; -LIDOCAINE HCL 2% 2 ML VIAL (20MG/ML) ONE; -LIDOCAINE/EPINEPHRINE 1% INJ 50 ML VIAL ONE; -MIDAZOLAM HCL 1 MG/ML 2ML VIAL ONE; -ONDANSETRON INJ 2 MG/ML 2 ML VIAL IV PRN; -ONDANSETRON INJ 2 MG/ML 2 ML VIAL ONE; +PERI-COLACE PO; -PROPOFOL IV EMULSION 10 MG/ML 20 ML VIAL IV ONE; -SODIUM CHLORIDE 0.9% 1000ML 1,000 ML IV SCH; +ZNTT/150 PO
--- NOTE | 2017-06-03 16:51 | ECHOCARDIOGRAM REPORT ---
*NOTICE TO RECEIVING CONSTITUTION PARTY AGENCY This information is strictly Confidential and protected under [place] law. [place] law prohibits you from making any further disclosure of this information unless further disclosure is expressly permitted by the written consent of the person to whom it pertains or is authorized by law. A general authorization for the release of medical or other information is not sufficient for this purpose. Hospital accepts no responsibility if the information is made available to any other person, INCLUDING THE PATIENT. Interpretation Summary * Name: STEVEN BOOTHE Study Date: 06/03/2017 02:00 PM BP: 150/61 mmHg * Patient Location: [facility] HR: 93 * : 1945 (M/d/yyyy) Gender: Female Height: 64 in * Age: 71 yrs Ethnicity: [place] Weight: 143 lb * Ordering Physician: Telly Medina * Referring Physician: Telly Medina * Performed By: Leona Naylor RDCS * * Reason For Study: NEOPLASM * BSA: 1.7 m2 * -- Conclusions -- * 1. Normal LV size. Borderline concentric LVH. * 2. Normal LV systolic function. LVEF 60-65%. No regional wall motion abnormalities. * 3. Normal RV size and function. * 4. No significant valvular pathology. * 5. Normal estimated CVP. * 6. No prior studies for comparison. Procedure Details * A complete two-dimensional transthoracic echocardiogram was performed (2D, M-mode, Doppler and color flow Doppler). Left Ventricle * The left ventricle is grossly normal size. * There is borderline concentric left ventricular hypertrophy. * Ejection Fraction = 60-65%. * No regional wall motion abnormalities noted. Right Ventricle * The right ventricle is grossly normal size. * The right ventricular systolic function is normal as assessed by tricuspid annular plane systolic excursion (TAPSE) (normal >1.5 cm). Atria * The left atrial size is normal. * Right atrial size is normal. * No ASD detected; PFO is not assessed. Mitral Valve * The mitral valve is grossly normal. * There is no mitral valve stenosis. * There is trace mitral regurgitation. Tricuspid Valve * The tricuspid valve is not well visualized, but is grossly normal. * There is no tricuspid stenosis. * Significant tricuspid regurgitation is absent. Aortic Valve * The aortic valve opens well. * The aortic valve is trileaflet. * No hemodynamically significant valvular aortic stenosis. * There is no significant aortic regurgitation. Pulmonic Valve * The pulmonary valve is inadequately visualized, but the Doppler data is adequate for interpretation. * Pulmonic stenosis is absent. * There is no significant pulmonary regurgitation. Great Vessels * The aortic root and proximal ascending aorta are normal sized. Pericardium/Pleural * There is no pericardial effusion. Great Vessels * Normal inferior vena cava size and collapsability with sniff indicates a normal right atrial pressure of 3 mmHg MMode 2D Measurements and Calculations IVSd 1.1 cm IVSs 1.6 cm LVIDd 3.5 cm LVIDs 2.4 cm LVPWd 1.3 cm LVPWs 1.7 cm IVS/LVPW 0.84 FS 31.0 % EDV(Teich) 49.8 ml ESV(Teich) 20.1 ml EF(Teich) 59.8 % EDV(cubed) 41.8 ml ESV(cubed) 13.7 ml EF(cubed) 67.1 % % IVS thick 52.7 % % LVPW thick 33.5 % LV mass(C)d 127.5 grams LV mass(C)dI 75.2 grams/m\S\2 LV mass(C)s 143.1 grams LV mass(C)sI 84.4 grams/m\S\2 SV(Teich) 29.8 ml SI(Teich) 17.6 ml/m\S\2 SV(cubed) 28.1 ml SI(cubed) 16.5 ml/m\S\2 Ao root diam 3.3 cm Ao root area 8.3 cm\S\2 LA dimension 3.2 cm LA/Ao 0.98 LVAd ap4 23.3 cm\S\2 LVLd ap4 7.5 cm EDV(MOD-sp4) 59.6 ml LVAs ap4 12.4 cm\S\2 LVLs ap4 6.2 cm ESV(MOD-sp4) 23.7 ml EF(MOD-sp4) 60.2 % LVAd ap2 22.0 cm\S\2 LVLd ap2 7.6 cm EDV(MOD-sp2) 54.8 ml LVAs ap2 10.6 cm\S\2 LVLs ap2 5.8 cm ESV(MOD-sp2) 17.6 ml EF(MOD-sp2) 67.9 % SV(MOD-sp4) 35.9 ml SI(MOD-sp4) 21.2 ml/m\S\2 SV(MOD-sp2) 37.2 ml SI(MOD-sp2) 21.9 ml/m\S\2 Doppler Measurements and Calculations MV E max lyndsey 62.6 cm/sec MV A max lyndsey 96.0 cm/sec MV E/A 0.65 MV dec time 0.25 sec Ao V2 max 119.4 cm/sec Ao max PG 5.7 mmHg Ao max PG (full) 2.4 mmHg LV V1 max PG 3.3 mmHg LV V1 max 91.2 cm/sec
== END | disposition home or self-care (01) ==
LOC: C.CPL 13:53
PROVIDERS: ATTEND Internal Medicine Hematology & Oncology
DX: C85.90 Non-Hodgkin lymphoma, unspecified, unspecified site (principal)

== ENCOUNTER → 2017-06-10 | Day surgery (SDC) | payer OTHER ==
[2017-06-08 11:08] VITALS: BMI 24.0
[~2017-06-10] VITALS: Ht 162.6 cm; Wt 65.0 kg
[~2017-06-10] MED LIST changes: +ATROPINE SULFATE 0.1 MG/ML 5ML SYR IV PRN; -AZIT500T26 PO; +BUPIVACAINE/EPINEPHRINE 0.5% 1:200,000 1.8 ML CARP ONE; +BUPIVACAINE/EPINEPHRINE 0.5% MPF 1:200,000 30 ML VIAL ONE; +CALC500C3 PO; +CLINDAMYCIN 600 MG/54 ML D5W IV SCH; +FENTANYL CITRATE INJ 50 MCG/1 ML 2 ML VIAL ONE; +HEPARIN SOD (PORCINE) 1000 UNIT/ML 10 ML VIAL ONE; +HYDROCODONE/ACETAMOPHEN 5/325MG TAB PO PRN; +LACTATED RINGER'S 1000ML 1,000 ML IV SCH; +LIDOCAINE HCL 2% 2 ML VIAL (20MG/ML) ONE; +MIDAZOLAM HCL 1 MG/ML 2ML VIAL ONE; +ONDANSETRON INJ 2 MG/ML 2 ML VIAL IV PRN; +ONDANSETRON INJ 2 MG/ML 2 ML VIAL ONE; +PROPOFOL IV EMULSION 10 MG/ML 20 ML VIAL IV ONE; +SODIUM CHLORIDE 0.9% 1000ML 1,000 ML IV SCH; +[UNRECOGNIZED DRUG - OTHER] SCH
[2017-06-10 09:14] VITALS: BP 124/58; PULSE 89; TEMP 36.8; O2SAT 97; Ht 162.6 cm; Wt 65.0 kg
--- NOTE | 2017-06-10 10:40 | History & Physical Bridge Note ---
H&P Re-Evaluation Bridge Note: I have examined the patient, reviewed the History & Physical and in the interval since the performance of the History & Physical I have noted the following changes of clinical significance: No changes noted. will perform left subclavian mediport insertion.
[2017-06-10] MEDS: FENTANYL CITRATE INJ 50 MCG/1 ML 2 ML VIAL IV PRN ×4 (12:20→12:35)
--- NOTE | 2017-06-10 12:24 | Discharge Instructions ---
Discharge Instructions Date of Service Jun 10, 2017. Admission Reason for Admission: B-Cell Non-Hodgkin's Lymphoma Discharge Discharge Diagnosis / Problem: B-Cell Non-Hodgkin's Lymphoma Discharge Goals Goal(s): Decrease discomfort, Improve function Activity Recommendations Activity Limitations: as noted below Lifting Limitations: no more than 10 pounds Exercise/Sports Limitations: until after follow-up appointment May Resume Sexual Activity: after follow-up appointment Shower/Bathe: tomorrow Driving or Machine Use: resume 1 day after discharge . Instructions / Follow-Up Instructions / Follow-Up You may use over the counter pain medication if you experience any pain or swelling. Please follow-up with Dr. Bettencourt in the office in 1-2 weeks. Please call the office at [phone] to make a follow-up appointment if you do not have one already. Please call the office with any questions or concerns. Current Hospital Diet Patient's current hospital diet: Discharge Diet Recommended Diet: Regular Diet Procedures Procedures Performed: Insertion of mediport using fluoroscopy left internal jugular Pending Studies Studies pending at discharge: no Medical Emergencies . Who to Call and When: Medical Emergencies: If at any time you feel your situation is an emergency, please call 911 immediately. . Non-Emergent Contact Non-Emergency issues call your: Primary Care Provider, Surgeon Call Non-Emergent contact if: temperature is above 101.5, your pain is not controlled, wound has increased drainage, wound has increased redness . "Provider Documentation" section prepared by Carina Vegas. . VTE Core Measure Inpt VTE Proph given/why not?: SCD's [place] Drug Monitoring Program Search Results: patient reviewed within database, no issues identified
--- NOTE | 2017-06-10 12:31 | [facility] Operative Report ---
Operative Report Operative Date Jun 10, 2017. Pre-Operative Diagnosis B-cell lymphoma Post-Operative Diagnosis B-cell lymphoma Procedure(s) Performed Insertion of mediport using fluoroscopy left internal jugular Surgeon Dr. Connor Bettencourt Bookkeeping Assistant Surgeon(s) Carina Vegas PA-C Estimated Blood Loss 20 mL Findings normal anatomy with difficult subclavian access so converted to left IJ approach. Specimens none per surgeon Anesthesia MAC/local Complication(s) None Disposition Recovery Room / PACU Description of Procedure After informed consent was obtained the patient was taken to the operating room and placed in supine position. Left arm was tucked and a rolled towel was placed between her shoulder blades. The left upper chest area was sterilely prepped and draped in usual fashion. I used local anesthetic to create a skin wheal just below the angle of the left clavicle. I Also included a tract up to the periosteum of the left clavicle. We then made a horizontal incision on the upper chest and carried this down through the soft tissue using electrocautery. Once we were down to the pectoralis muscle I bluntly created a pocket to house the port itself. Using a 18-gauge finder needle I accessed left subclavian vein several times however I was unable to pass the guidewire. Unclear if it was calcifications from her years of smoking but for whatever reason I was unable to pass the guidewire in the left subclavian vein despite multiple attempts. We therefore re-prepped and draped in the neck and included this in our sterile field of the upper chest. I put some additional Marcaine around the skin and used a small 23-gauge finder needle to access the left internal jugular vein without difficulty. Then using an 18-gauge needle I accessed the internal jugular and then easily passed a guidewire under fluoroscopy. Next we tunneled a catheter from the pocket on the upper chest up to the access point. We then passed a vascular dilator with peel-away sheath over the guidewire again under fluoroscopy. We then withdrew the guidewire and dilator and passed the catheter through the peel-away sheath. We then peeled the sheath away leaving the catheter itself in the superior vena cava. Next we cut the catheter to appropriate size and connected it to the Mediport itself. I secured it to the pectoralis muscle the upper chest using 0 Ethibond with 3 point fixation. We accessed the port flushed with heparin solution and easily withdrew dark venous blood. The catheter itself had been irrigated prior to placement as well. I then thoroughly irrigated the wound and close it multiple layers using 3-0 Monocryl for deep layers and 3-0 Monocryl for the skin. Sterile dressing was applied. Patient was awaken and transferred recovery in stable condition. Postoperative portable chest x-ray the to rule out pneumothorax is currently pending I attest to the content of the Intraoperative Record and any orders documented therein. Any exceptions are noted below.
[2017-06-10 12:55] VITALS: BP 148/78; PULSE 75; TEMP 37.1; O2SAT 95
--- NOTE | 2017-06-10 12:56 | Anesthesiology Progress Note ---
Anesthesia Post Op Note Date & Time Jun 10, 2017 at 12:56 Vital Signs Pain Intensity: 4 Vital Signs Past 12 Hours Date Time Temp Pulse Resp B/P (MAP) Pulse Ox O2 Delivery O2 Flow Rate FiO2 06/10/17 12:45 36.2 80 16 144/66 93 Room Air 06/10/17 12:35 75 16 136/60 93 Room Air 06/10/17 12:25 76 16 138/58 92 Room Air 06/10/17 12:16 36.4 79 16 137/59 95 Room Air 06/10/17 09:14 36.8 89 20 124/58 (80) 97 Room Air Notes Mental Status: alert / awake / arousable, participated in evaluation Pt Amnestic to Procedure: Yes Nausea / Vomiting: adequately controlled Pain: adequately controlled Airway Patency, RR, SpO2: stable & adequate BP & HR: stable & adequate Hydration State: stable & adequate Anesthetic Complications: no major complications apparent
--- NOTE | 2017-06-10 12:59 | DIAGNOSTIC IMAGING REPORT ---
CHEST ONE VIEW PORTABLE HISTORY: 71 years-old Female s/p port placement status post left port placement. COMPARISON: PET CT 04/21/2017 TECHNIQUE: Portable upright AP view of the chest FINDINGS: Left internal jugular [id number] catheter has been placed with distal tip terminating at the midline in the region of the left brachiocephalic vein. There is no postprocedural pneumothorax identified. Cardiac silhouette is within normal limits. No pleural effusion or focal airspace consolidation. Ill-defined nodular opacities of the right lung base appear unchanged from comparison study suggesting pleural parenchymal scarring. The bones are grossly intact. IMPRESSION: 1. Status post placement of a left internal jugular [id number] catheter with distal tip terminating at the midline in the expected region of the left brachiocephalic vein just proximal to the SVC confluence. No postprocedural pneumothorax. The above report was generated using voice recognition software. It may contain grammatical, syntax or spelling errors. Electronically signed by: Ulises Kaba M.D. 06/10/2017 12:58 PM Dictated Date/Time: 06/10/2017 12:56 PM
[2017-06-10 13:25] VITALS: BP 135/62; PULSE 83; TEMP 36.6; O2SAT 95
[2017-06-10 13:55] VITALS: BP 141/63; PULSE 84; TEMP 37; O2SAT 96
== END | disposition home or self-care (01) ==
LOC: C.ACU 08:48
PROVIDERS: ATTEND Surgery
DX: C85.10 Unspecified B-cell lymphoma, unspecified site (principal); F41.9 Anxiety disorder, unspecified; F32.9 Major depressive disorder, single episode, unspecified; Z85.828 Personal history of other malignant neoplasm of skin; Z90.710 Acquired absence of both cervix and uterus; Z98.890 Other specified postprocedural states; Z79.899 Other long term (current) drug therapy; Z79.52 Long term (current) use of systemic steroids; Z88.2 Allergy status to sulfonamides; Z88.1 Allergy status to other antibiotic agents; F17.200 Nicotine dependence, unspecified, uncomplicated; Z82.49 Family history of ischemic heart disease and other diseases of the circulatory system; Z80.1 Family history of malignant neoplasm of trachea, bronchus and lung; Z80.3 Family history of malignant neoplasm of breast

== ENCOUNTER → 2017-08-09 | Outpatient (CLI) | payer OTHER ==
[~2017-08-09] MED LIST changes: -ATROPINE SULFATE 0.1 MG/ML 5ML SYR IV PRN; -BUPIVACAINE/EPINEPHRINE 0.5% 1:200,000 1.8 ML CARP ONE; -BUPIVACAINE/EPINEPHRINE 0.5% MPF 1:200,000 30 ML VIAL ONE; -CLINDAMYCIN 600 MG/54 ML D5W IV SCH; -FENTANYL CITRATE INJ 50 MCG/1 ML 2 ML VIAL ONE; -HEPARIN SOD (PORCINE) 1000 UNIT/ML 10 ML VIAL ONE; -HYDROCODONE/ACETAMOPHEN 5/325MG TAB PO PRN; -LACTATED RINGER'S 1000ML 1,000 ML IV SCH; -LIDOCAINE HCL 2% 2 ML VIAL (20MG/ML) ONE; -MIDAZOLAM HCL 1 MG/ML 2ML VIAL ONE; -ONDANSETRON INJ 2 MG/ML 2 ML VIAL IV PRN; -ONDANSETRON INJ 2 MG/ML 2 ML VIAL ONE; -PROPOFOL IV EMULSION 10 MG/ML 20 ML VIAL IV ONE; -SODIUM CHLORIDE 0.9% 1000ML 1,000 ML IV SCH; -[UNRECOGNIZED DRUG - OTHER] SCH
--- NOTE | 2017-08-09 14:18 | DIAGNOSTIC IMAGING REPORT ---
PET/CT SKULL-THIGH CLINICAL HISTORY: 72 years-old Female with LYMPHOMA. Subsequent treatment strategy. Follow-up study in a patient with history of non-Hodgkin's lymphoma COMPARISON: PET CT 04/21/2017 TECHNIQUE: The patient was injected with 12.04 mCi of F-18 fluorodeoxyglucose (FDG) and an emission scan was performed from the skull vertex to the toes. Noncontrast CT was performed for attenuation correction and anatomic localization. The blood glucose level was 97 mg/dl. FINDINGS: HEAD AND NECK: Activity within the tongue and vocal cords is likely physiologic secondary to recent speech. No hypermetabolic adenopathy. CHEST: There is a physiologic distribution of activity, with no hypermetabolic mediastinal, hilar or pulmonary foci. The previously described hypermetabolic bulky right axillary adenopathy is no longer identified. There is only minimal focal soft tissue stranding/nodularity within the right axilla measuring up to 9 x 6 mm as seen on image 75 of series 2 demonstrating SUV max of 1.0. There is also resolution of the previously described hypermetabolic mediastinal adenopathy. Previously noted 2.2 x 1.5 cm hypermetabolic right hilar lymph node now measures 1.2 x 0.6 cm on image 80 of series 2. No residual pathologically enlarged adenopathy identified. ABDOMEN AND PELVIS: There is a physiologic distribution of activity within the liver, spleen, adrenal glands, gastrointestinal and urinary tracts, with no hypermetabolic foci. The spleen has markedly decreased in size, now measuring 7.6 x 4.0 cm, previously 13.8 x 10.0 cm. Mild perisplenic ascites is noted demonstrating Hounsfield unit of 20. The hypermetabolic activity of the spleen which was previously identified has resolved. MUSCULOSKELETAL SYSTEM AND EXTREMITIES: The skeletal structures demonstrate mildly increased metabolic activity throughout without definite focal abnormalities identified. The previously described hypermetabolic focus involving left C1 lateral mass is not identified. Mildly increased radiotracer activity about the bilateral trapezius musculature is likely inflammatory or related to recent activity. ADDITIONAL CT FINDINGS: Left pectoral Oqqogp-a-Uyrf catheter is noted with distal tip terminating in the left brachiocephalic vein. Emphysema. Unchanged groundglass nodules of the left upper lobe measuring up to 4 mm without hypermetabolic activity. Indeterminate 2 mm nodule of the right upper lobe seen on image 71 series 2 without hypermetabolic activity. Small right Bochdalek hernia. Moderate atherosclerosis of the aorta. Moderate colonic diverticulosis. IMPRESSION: 1. Findings compatible with positive response to therapy with resolution of the previously described hypermetabolic right axillary, mediastinal and hilar hypermetabolic adenopathy. 2. The spleen has significantly decreased in size from prior study and no longer demonstrates hypermetabolic activity compatible with positive response to therapy. Small amount of perisplenic ascites is noted demonstrating increased density suggesting small perisplenic hematoma. 3. Homogeneous diffusely increased metabolic activity throughout the bony structures suggests response to colony-stimulating factor. No discrete focal suspicious bony lesions identified. The above report was generated using voice recognition software. It may contain grammatical, syntax or spelling errors. Electronically signed by: Ulises Kaba M.D. 08/09/2017 2:17 PM Dictated Date/Time: 08/09/2017 1:59 PM
== END | disposition home or self-care (01) ==
LOC: C.PET 09:24
PROVIDERS: ATTEND Internal Medicine Hematology & Oncology
DX: C85.90 Non-Hodgkin lymphoma, unspecified, unspecified site (principal)

== ENCOUNTER → 2017-10-25 | Outpatient (CLI) | payer OTHER ==
[~2017-10-25] MED LIST changes: +RANI150T85 PO; -ZNTT/150 PO
--- NOTE | 2017-10-25 11:24 | DIAGNOSTIC IMAGING REPORT ---
PET/CT SKULL-THIGH CLINICAL HISTORY: Non-Hodgkin's lymphoma COMPARISON STUDY: August 09, 2017 FINDINGS: The patient was injected with 13.1 mCi of F 18 labeled FDG. Findings standard induction phase, PET/CT scanning was performed from the skull base to the upper thigh region. Within the neck, there is intense increased FDG activity fusing to the tongue. This is likely secondary to muscular activity. Clinical correlation in this regard is advocated. Activity within neck is otherwise unremarkable. Within the thorax, there is no pathologic pedrito activity. There is no pathologic pleural or parenchymal activity. Within the abdomen and pelvis, there is physiologic urinary tract and bowel activity. There is no pathologic pedrito activity. There is no pathologic skeletal activity. The spleen is mildly enlarged measuring 13.4 cm. There is a small amount of perisplenic fluid. There is a small fat-containing left femoral hernia IMPRESSION: 1. Intense activity fusing to the tongue, likely secondary to muscular activity. Clinical correlation in this regard is advocated 2. No evidence of pathologic pedrito activity. 3. Mild splenomegaly (13.4 cm). Small amount of perisplenic fluid. Electronically signed by: Duy Santana M.D. 10/25/2017 11:22 AM Dictated Date/Time: 10/25/2017 11:15 AM
== END | disposition home or self-care (01) ==
LOC: C.PET 08:56
PROVIDERS: ATTEND Internal Medicine Hematology & Oncology
DX: C85.90 Non-Hodgkin lymphoma, unspecified, unspecified site (principal); R16.1 Splenomegaly, not elsewhere classified

== ENCOUNTER → 2018-01-05 | Outpatient (CLI) | payer OTHER ==
[~2018-01-05] MED LIST changes: +DOCU-94 PO; -PERI-COLACE PO
[2018-01-05 16:47] LABS: BASO % 0.8 %; BASO ABS # 0.06 K/uL (0-0.2); EOS % 2.3 %; EOS ABS # 0.17 K/uL (0-0.5); HEMATOCRIT 40.6 % (37-47); HEMOGLOBIN 13.3 g/dL (12.0-16.0); IG# 0.03 K/uL (0.00-0.02); LYMPH % 16.7 %; LYMPH ABS # 1.21 K/uL (1.2-3.4); MEAN CELL VOLUME 90.4 fL (80-100); MEAN CORPUSCULAR HEMOGLOBIN 29.6 pg (25-34); MEAN CORPUSCULAR HGB CONC 32.8 g/dl (32-36); MEAN PLATELET VOLUME 9.5 fL (7.4-10.4); MONO % 5.9 %; MONO ABS # 0.43 K/uL (0.11-0.59); NEUT % 73.9 %; NEUT ABS # 5.34 K/uL (1.4-6.5); PLATELET COUNT 273 K/uL (130-400); RED CELL DISTRIBUTION WIDTH CV 13.8 % (11.5-14.5); RED CELL DISTRIBUTION WIDTH SD 45.7 fL (36.4-46.3); WHITE BLOOD COUNT 7.24 K/uL (4.8-10.8)
[2018-01-05 16:59] LABS: BLOOD UREA NITROGEN 14 mg/dl (7-18); CALCIUM 8.7 mg/dl (8.5-10.1); CARBON DIOXIDE 28 mmol/L (21-32); CREATININE 0.76 mg/dl (0.60-1.20); GLUCOSE 81 mg/dl (70-99); SODIUM 140 mmol/L (136-145)
== END | disposition home or self-care (01) ==
LOC: C.LABBFT 12:49
PROVIDERS: ATTEND Surgery
DX: Z01.818 Encounter for other preprocedural examination (principal); K40.90 Unilateral inguinal hernia, without obstruction or gangrene, not specified as recurrent

== ENCOUNTER → 2018-01-11 | Day surgery (SDC) | payer OTHER ==
[2017-12-17 13:50] VITALS: Ht 162.6 cm; Wt 61.4 kg
[~2018-01-11] VITALS: Ht 162.6 cm; Wt 61.4 kg
[~2018-01-11] MED LIST changes: +ALBUTEROL 0.083% NEBU SOLN 3 ML VIAL INH PRN; +ATROPINE SULFATE 0.1 MG/ML 5ML SYR IV PRN; +BUPIVACAINE 0.5 % 5 MG/1 ML MPF 30ML VIAL ONE; +CEFAZOLIN 2000MG IV PUSH 15 ML IV SCH; +ESCI1TAB6 PO; +EpHEDrine SULFATE INJ 50 MG/ML AMP IV PRN; +EpINEphrine INJ 1MG/ML AMP 1 MG/ML AMP ONE; +FENTANYL CITRATE INJ 50 MCG/1 ML 2 ML VIAL ONE; +FLUMAZENIL 0.1 MG/1 ML 10 ML VIAL IV PRN; +LABETALOL HCL IV 5 MG/ML 20ML IV PRN; +LACTATED RINGER'S 1000ML 1,000 ML IV SCH; +LIDOCAINE HCL 2% 2 ML VIAL (20MG/ML) ONE; +MIDAZOLAM HCL 1 MG/ML 2ML VIAL ONE; +NALOXONE HCL 0.4 MG/1 ML VIAL/CARP IV PRN; +ONDANSETRON INJ 2 MG/ML 2 ML VIAL IV PRN; +ONDANSETRON INJ 2 MG/ML 2 ML VIAL ONE; +OXYC-57 PO; +OXYCODONE/ACETAMINOPHEN 5-325 TAB PO PRN; +PROMETHAZINE HCL INJ 12.5 MG in SODIUM CHLORIDE 0.9% 50ML 50 ML IV PRN; +PROPOFOL IV EMULSION 10 MG/ML 20 ML VIAL ONE; +SODIUM CHLORIDE 0.9% 1000ML 1,000 ML IV SCH
--- NOTE | 2018-01-11 11:01 | [facility] Post Operative Brief Note ---
Immediate Operative Summary Operative Date January 11, 2018. Pre-Operative Diagnosis Left Inguinal Hernia Post-Operative Diagnosis Same with lipoma of round ligament Procedure(s) Performed Left Inguinal Open Hernia Repair With Mesh ( plug and patch) excision of lipoma Surgeon Dr. Bettencourt Grain Buyer Surgeon(s) Latoya Olivares PA-C Estimated Blood Loss 5 mL Findings Consistent with Post-Op Diagnosis Specimens None Anesthesia Type General Complication(s) none
--- NOTE | 2018-01-11 11:22 | [facility] Operative Report ---
Operative Report Operative Date January 11, 2018. Pre-Operative Diagnosis Left Inguinal Hernia Post-Operative Diagnosis Same with lipoma of round ligament Procedure(s) Performed Left Inguinal Open Hernia Repair With Mesh ( plug and patch) excision of lipoma Surgeon Dr. Bettencourt Chiropractic Care Surgeon(s) Latoya Olivares PA-C Estimated Blood Loss 5 mL Specimens None Anesthesia Type General Complication(s) none Description of Procedure After informed consent was obtained the patient was taken to the operating room and placed in supine position. After successful placement of the laryngeal mask airway the groin was shaved and sterilely prepped and draped in usual fashion. An inguinal incision was made with a 15 blade scalpel and carried down through the soft tissue using electrocautery. The external oblique aponeurosis was skeletonized. A fresh blade was used to make an incision and then Metzenbaum scissors were used to extend this distally through the external ring as well as for several centimeters proximally. Once in the inguinal canal there was an obvious large hernia sac as well as a lipoma. Was able to excise the lipoma and discard it. She had what must of been a very atrophic round ligament. I was unable to truly identify it. We were able to free up the hernia sac from all surrounding structures back to its neck. It was then able to be easily dunk the hernia and contents back into the abdominal cavity. The defect was rather large and I had trouble keeping the hernia self reduced. Because of this I opted for a plug and patch technique. We used a piece of polypropylene mesh plug and inserted it into the defect. I secured it to surrounding structures using 0 Ethibond. I secured it to the shelving portion of Poupart ligament laterally, He's ligament distally and midline musculature medially. Once I had this in place I used a polypropylene onlay over top of this. This was also secured to He's ligament shelving portion of Poupart ligament and midline musculature medially. The mesh laid nice and tension-free. There was adequate hemostasis. We thoroughly irrigated the wound. I used Marcaine to inject around the edge of the mesh for postoperative analgesia. The external oblique aponeurosis was closed using 2-0 Vicryl in running technique. Soft tissue was irrigated and closed using 3-0 Vicryl for the deep layers and 4-0 Monocryl for the skin. Some additional Marcaine was injected around the skin and Dermabond glue was used as a dressing. The patient was awaken extubated and transferred to recovery in stable condition. My physician's telecom assistant was present throughout the entire procedure. He helped prep the patient. Helped with retraction throughout the case to aid my dissection, assisted with wound closure as well as dressing placement. I attest to the content of the Intraoperative Record and any orders documented therein. Any exceptions are noted below. I attest to the content of the Intraoperative Record and any orders documented therein. Any exceptions are noted below.
--- NOTE | 2018-01-11 11:22 | Discharge Instructions ---
Discharge Instructions Date of Service January 11, 2018. Visit Reason for Visit: Left Inguinal Hernia Discharge Discharge Diagnosis / Problem: Left Inguinal Hernia Discharge Goals Goal(s): Decrease discomfort, Improve function Activity Recommendations Activity Limitations: as noted below Lifting Limitations: no more than 10 pounds, until after follow-up appointment Exercise/Sports Limitations: until after follow-up appointment May Resume Sexual Activity: after follow-up appointment Shower/Bathe: tomorrow Driving or Machine Use: resume 3 days after discharge (Please do not drive while using narcotic pain medication) Anesthesia . Post Anesthesia Instructions: If you have had General Anesthesia or IV Sedation: * Do not drive today. * Resume driving when surgeon permits. * Do not make important decisions or sign legal documents today. * Call surgeon for: 1. Temperature elevations greater than 101 degrees F. 2. Uncontrollable pain. 3. Excessive bleeding. 4. Persistent nausea and vomiting. 5. Medication intolerance (nausea, vomiting or rash). * For nausea and vomiting use only clear liquids such as: tea, soda, bouillon until nausea subsides, then gradually increase diet as tolerated. * If you have any concerns or questions, call your surgeon's office. If physician is unavailable and it is an emergency, call 911 or go to the nearest emergency room. . Instructions / Follow-Up Instructions / Follow-Up You have surgical glue covering your incision. Please allow this to fall off on its own. You may ice your hernia site to reduce swelling and pain. 20 minutes on, 20 minutes off. You have been prescribed Percocet to take as needed for pain relief. Please use as directed. Follow-up with Dr. Bettencourt in 1-2 weeks. Please contact our office at to schedule an appointment if you have not done so already. Please contact our office with any further questions or concerns. [facility]. [address] [place] [address]. Diet Recommendations Recommended Home Diet: no limitations, resume previous diet Procedures Procedures Performed: Left Inguinal Open Hernia Repair With Mesh ( plug and patch) excision of lipoma Pending Studies Studies pending at discharge: no Medical Emergencies . Who to Call and When: Medical Emergencies: If at any time you feel your situation is an emergency, please call 911 immediately. . Non-Emergent Contact Non-Emergency issues call your: Primary Care Provider, Surgeon Call Non-Emergent contact if: you have a fever, temperature is above 101.5, your pain is not controlled, your pain is worsening, wound has increased drainage, wound has increased redness . . "Provider Documentation" section prepared by Uday Olivares. . [place] Drug Monitoring Program Search Results: patient reviewed within database, no issues identified
[2018-01-11] MEDS: FENTANYL CITRATE INJ 50 MCG/1 ML 2 ML VIAL IV PRN ×4 (11:33→12:00)
--- NOTE | 2018-01-11 12:20 | Anesthesia Progress Nt - [facility] ---
Anesthesia Post Op Note Date & Time January 11, 2018 at 12:20 Vital Signs Pain Intensity: 4 Vital Signs Past 12 Hours Date Time Temp Pulse Resp B/P (MAP) Pulse Ox O2 Delivery O2 Flow Rate FiO2 01/11/18 12:12 77 01/11/18 12:12 77 93 01/11/18 12:11 138/70 01/11/18 12:09 75 13 95 01/11/18 12:09 76 13 01/11/18 12:08 73 15 96 01/11/18 12:08 73 15 01/11/18 12:06 145/63 01/11/18 12:05 37.0 75 20 145/63 96 Room Air 01/11/18 12:03 79 15 96 01/11/18 12:03 79 15 01/11/18 12:02 119/53 01/11/18 11:59 85 17 95 01/11/18 11:59 79 17 01/11/18 11:57 143/57 01/11/18 11:54 72 17 99 01/11/18 11:54 73 17 01/11/18 11:52 120/75 01/11/18 11:49 78 30 01/11/18 11:49 78 30 100 01/11/18 11:46 144/69 01/11/18 11:44 76 12 01/11/18 11:44 76 12 100 01/11/18 11:42 142/64 01/11/18 11:39 75 16 100 01/11/18 11:39 74 16 01/11/18 11:38 76 01/11/18 11:38 76 100 01/11/18 11:37 138/56 01/11/18 11:33 81 18 100 01/11/18 11:33 82 18 01/11/18 11:28 86 23 99 01/11/18 11:28 86 23 01/11/18 11:26 154/70 01/11/18 11:23 85 19 100 01/11/18 11:23 85 19 01/11/18 11:22 90/77 01/11/18 11:20 90/78 01/11/18 11:19 36.6 91 16 90/78 98 Room Air 01/11/18 08:17 37 86 16 140/70 (93) 96 Room Air Notes Mental Status: alert / awake / arousable, participated in evaluation Pt Amnestic to Procedure: Yes Nausea / Vomiting: adequately controlled Pain: adequately controlled Airway Patency, RR, SpO2: stable & adequate BP & HR: stable & adequate Hydration State: stable & adequate Anesthetic Complications: no major complications apparent
[2018-01-11 12:45] VITALS: BP 137/76; PULSE 83; O2SAT 95
== END | disposition home or self-care (01) ==
LOC: X.SURG 07:54
PROVIDERS: ATTEND Surgery
DX: K40.90 Unilateral inguinal hernia, without obstruction or gangrene, not specified as recurrent (principal); J44.9 Chronic obstructive pulmonary disease, unspecified; F17.200 Nicotine dependence, unspecified, uncomplicated; F41.9 Anxiety disorder, unspecified; K21.9 Gastro-esophageal reflux disease without esophagitis; Z79.899 Other long term (current) drug therapy; Z98.890 Other specified postprocedural states; Z90.710 Acquired absence of both cervix and uterus; Z88.2 Allergy status to sulfonamides; Z88.8 Allergy status to other drugs, medicaments and biological substances; Z88.0 Allergy status to penicillin; Z82.49 Family history of ischemic heart disease and other diseases of the circulatory system; Z80.3 Family history of malignant neoplasm of breast; Z80.1 Family history of malignant neoplasm of trachea, bronchus and lung

== ENCOUNTER → 2018-03-21 | Outpatient (CLI) | payer OTHER ==
[~2018-03-21] MED LIST changes: -ALBUTEROL 0.083% NEBU SOLN 3 ML VIAL INH PRN; -ATROPINE SULFATE 0.1 MG/ML 5ML SYR IV PRN; -BUPIVACAINE 0.5 % 5 MG/1 ML MPF 30ML VIAL ONE; -CEFAZOLIN 2000MG IV PUSH 15 ML IV SCH; -EpHEDrine SULFATE INJ 50 MG/ML AMP IV PRN; -EpINEphrine INJ 1MG/ML AMP 1 MG/ML AMP ONE; -FENTANYL CITRATE INJ 50 MCG/1 ML 2 ML VIAL ONE; -FLUMAZENIL 0.1 MG/1 ML 10 ML VIAL IV PRN; -LABETALOL HCL IV 5 MG/ML 20ML IV PRN; -LACTATED RINGER'S 1000ML 1,000 ML IV SCH; -LIDOCAINE HCL 2% 2 ML VIAL (20MG/ML) ONE; -MIDAZOLAM HCL 1 MG/ML 2ML VIAL ONE; -NALOXONE HCL 0.4 MG/1 ML VIAL/CARP IV PRN; -ONDANSETRON INJ 2 MG/ML 2 ML VIAL IV PRN; -ONDANSETRON INJ 2 MG/ML 2 ML VIAL ONE; -OXYC-57 PO; -OXYCODONE/ACETAMINOPHEN 5-325 TAB PO PRN; -PROMETHAZINE HCL INJ 12.5 MG in SODIUM CHLORIDE 0.9% 50ML 50 ML IV PRN; -PROPOFOL IV EMULSION 10 MG/ML 20 ML VIAL ONE; -SODIUM CHLORIDE 0.9% 1000ML 1,000 ML IV SCH
--- NOTE | 2018-03-21 11:38 | DIAGNOSTIC IMAGING REPORT ---
PET/CT SKULL-THIGH HISTORY: Lymphoma NON-HODGKIN LYMPHOMA,UNSPECIFIED,UNSPECIFIED SITE TECHNIQUE: PET/CT was performed from the base of the skull through the pelvis following the intravenous administration of 15.4 mCi of F18-FDG. Non-contrast CT imaging was performed over the same range without breath-hold for attenuation correction of PET images and anatomic correlation, but not for primary interpretation as it is not of standard diagnostic quality. CT DOSE: COMPARISON: 10/25/2017 FINDINGS: HEAD AND NECK: There is no FDG-avid disease or significant lymphadenopathy in the imaged portions of the head and the neck. CHEST: There is no FDG-avid disease in the chest. There is no axillary, mediastinal, or hilar lymphadenopathy. There is no pleural or pericardial effusion. There is no air-space disease or suspicious lung nodule. ABDOMEN/PELVIS: Below the diaphragm, tracer is distributed physiologically in the gastrointestinal and genitourinary tracts. There is no significant lymphadenopathy and no FDG-avid disease. MUSCULOSKELETAL: There is no FDG-avid or destructive bone lesion. IMPRESSION: There is no definite evidence of recurrent FDG-avid disease. Negative PET scan The above report was generated using voice recognition software. It may contain grammatical, syntax or spelling errors. Electronically signed by: Shilo Moran M.D. 03/21/2018 11:37 AM Dictated Date/Time: 03/21/2018 11:33 AM
== END | disposition home or self-care (01) ==
LOC: C.PET 08:08
PROVIDERS: ATTEND Internal Medicine Hematology & Oncology
DX: C85.90 Non-Hodgkin lymphoma, unspecified, unspecified site (principal)

== ENCOUNTER 2019-08-22 10:35 | Inpatient (IN) ==
[2019-08-22] MEDS ORDERED: fentaNYL citrate 100 MCG/2 ML VIAL IV STA ×2 (11:06→12:55)
--- NOTE | 2019-08-22 11:10 | Emergency Department Note ---
ED Provider Note CHIEF COMPLAINT: Fall, right hip pain HISTORY OF PRESENTING ILLNESS: This is a 74-year-old female who presents to the emergency department via EMS with concern for right hip pain after a fall today. Patient reports that she was getting up and she slid off of her bed landing on the right hip. Her son states that he called out for her and while he was talking to her, her eyes rolled back and her head and her arms became stiff, lasting about 20 seconds. He states after that she seemed to return back to normal and was not confused afterwards. There was no vomiting. She did not bite her tongue and there was no incontinence of bowel or bladder. She did have some nausea and was given 4 mg ODT Zofran by EMS. She is not sure whether she hit her head, but she denies any headache or neck pain. She did not take any blood thinners. She complains of pain in the right hip that is worse with any attempts to move the leg, she rates this a 6/10 at rest and 10/10 with movement. She denies any numbness/tingling in the leg. She denies any chest pain, shortness of breath, back pain, abdominal pain, vomiting, urinary problems. REVIEW OF SYSTEMS: A complete 10 point review of systems was reviewed with the patient with pertinent positives and negatives as per history of present illness. All else were negative. PAST MEDICAL HISTORY: COPD, depression, anxiety, non-hodgkin lymphoma in remission SOCIAL HISTORY: Lives at home, current every day smoker ALLERGIES: Reviewed in chart PHYSICAL EXAM: CONSTITUTIONAL: Pleasant and cooperative. Nontoxic-appearing and in no acute distress. Well appearing and well nourished. HEENT: Normocephalic, atraumatic. PERRL, EOMI. TMs normal with no hemotympanum bilaterally. Pharynx normal. NECK: Supple, full active range of motion without discomfort. No midline tenderness to palpation of the cervical spine. RESPIRATORY: Clear to auscultation bilaterally with no wheezing, crackles, rhonchi or stridor. Equal expansion bilaterally. CARDIOVASCULAR: Regular rate and rhythm with no murmurs, rubs or gallops. Normal peripheral perfusion. No edema. GASTROINTESTINAL: Soft, nontender, nondistended. No palpable masses or HSM. Bowel sounds present in all quadrants. No CVA tenderness bilaterally. MUSCULOSKELETAL: Tenderness to palpation over the right hip joint and with flexion and external rotation of the hip. Full range of motion of the knee and ankle without pain. 2+ DP and PT pulses in the right foot. Dorsiflexion and plantarflexion intact and strong bilaterally. Unable to fully assess strength in the right lower extremity due to pain. Increased pain with any attempts to actively range the hip. Normal length and alignment of the right leg. INTEGUMENTARY: No rash or other significant dermatologic conditions noted. NEUROLOGIC: Alert and oriented X 4 with normal affect. Cranial nerves II-XII grossly intact, no facial droop. No pronator drift. [id number] testing normal. Sensation intact light touch in all 4 extremities. No focal neurologic deficits noted. Normal speech. ED COURSE AND MEDICAL DECISION MAKING: CC: Patient presenting with complaint of fall, right hip pain DIFFERENTIAL DIAGNOSIS: Includes, but not limited to hip contusion, hematoma, fracture, dislocation, pelvis fracture, femur fracture, head injury, syncope, seizure, among others. INTERPRETATION OF LABS: No leukocytosis, no anemia, normal platelets, no significant electrolyte abnormalities, normal renal function, normal liver enzymes. IMAGING: CT head/brain wo con CT DOSE: HISTORY: Trauma. Mental status change. fall, poss syncope TECHNIQUE: Multiaxial CT images of the head were performed without the use of intravenous contrast. A dose lowering technique was utilized adhering to the principles of ALARA. Comparison: None. Findings: The paranasal sinuses and mastoid air cells are clear. The calvarium and skull base are intact. The ventricles and sulci are within normal limits. There is no mass, hematoma, midline shift, or acute infarct. Impression: No acute intracranial abnormality. ----- CERVICAL SPINE CT CT DOSE: 938.21 mGy.cm HISTORY: fall, eval trauma TECHNIQUE: Multiaxial CT images of the cervical spine were performed and reformatted in the sagittal and coronal plane without the use of contrast. A dose lowering technique was utilized adhering to the principles of ALARA. COMPARISON: None. FINDINGS: No fractures. No subluxation. Prevertebral soft tissues and the C1-C2 interval are intact. No pneumothorax. Mild degenerative disc disease at C5-C6 and C6-C7. IMPRESSION: No fractures within the cervical spine. ----- XR chest 1V not portable CLINICAL HISTORY: fall trauma. Pain. COMPARISON STUDY: No previous studies for comparison. FINDINGS: The bones soft tissues and hemidiaphragms are normal. The cardiomediastinal silhouette is normal. The lungs are clear. The pulmonary vasculature is normal. IMPRESSION: Negative chest. ----- XR hip RT 2V w pelvis CLINICAL HISTORY: fall, right hip pain trauma. Pain. COMPARISON: None. DISCUSSION: A subcapital fracture right hip. Slight bony impaction. No evidence for dislocation. There is no evidence for soft tissue swelling. IMPRESSION: 1. Slightly impacted subcapital fracture right hip. ----- XR femur RT 2V routine CLINICAL HISTORY: fall, right hip pain trauma. Pain. COMPARISON: None. DISCUSSION: Slightly impacted subcapital fracture right hip. No evidence for acetabular protrusion. Remainder the right femur is intact. There is no evidence for soft tissue swelling. IMPRESSION: Subcapital fracture right hip. The remainder of the femur is unremarkable. EKG: Shows normal sinus rhythm with a rate of 66 bpm, normal intervals, no ST or T wave abnormalities, no ectopy, no significant change when compared to previous EKG from 05/13/2017 by my interpretation. MEDICATION RECONCILIATION: I attest that I have personally reviewed the patient's current medication list. INITIAL VITAL SIGNS REVIEW: I reviewed the patient's initial vital signs and interpret them as follows: T: Afebrile; BP: Mildly hypertensive; HR: Within normal limits; RR: Within normal limits; Pulse Ox: Within normal limits on room air. Blood pressure screening: The patient was found to have an elevated blood pressure and was referred to the inpatient team for further management. MDM SUMMARY: Patient was evaluated at bedside, history and physical exam performed. Patient is alert and oriented, in no acute distress, resting calmly in stretcher. She is neurologically intact with no focal deficits appreciated on exam. She does have tenderness to palpation over the right hip joint and pain with range of motion of the hip, no shortening or external rotation of the right lower extremity to suggest dislocation. The patient son reported a brief episode of what sounds like syncope, she did not have any postictal state and she is able to recall all of the events of the incident today, I have a low suspicion for seizure. Orders were placed at bedside for labs, IV fentanyl for pain, EKG to evaluate for possible syncope, x-ray imaging of the chest, right hip and pelvis, and femur, CT imaging of the head and cervical spine to evaluate for trauma. Patient discussed with Dr. Rodriguez, who agrees with my assessment, plan, and disposition. Labs and imaging reviewed as above, labs are fairly unremarkable. She is not anemic. CT imaging reviewed and is negative. X-ray imaging reviewed and notable for an impacted subcapital fracture of the right hip joint. I spoke with Dr. Moore, [facility], who agrees to evaluate the patient for admission. Patient reassessed multiple times throughout ED stay, she has remained hemodynamically stable, her pain is adequately controlled with IV fentanyl and morphine at this time. The patient and her son were updated on all results and plan for her admission and probable surgery, they verbalized understanding and were agreeable to this plan. All questions were answered at this time to the best of my ability. Patient was stable at time of admission. The chart was completed utilizing [employer] Speech voice recognition software. Grammatical errors, random word insertions, pronoun errors, and incomplete sentences are an occasional consequence of this system due to software limitations, ambient noise, and hardware issues. Any formal questions or concerns about the content, text, or information contained within the body of this dictation should be directly addressed to the nurse practitioner for clarification. Impression & Plan Accidental fall from bed, Subcapital fracture of right hip Past Med/Surg History Social History Preferred Language: Greek Communication Ability: Effective Supervisor Network Control Operators Required: No Beliefs That Will Affect Care: None Current Living Situation: Family Feels Safe at Home: Yes Smoking Status: Current every day smoker Tobacco Type: cigarettes ; Cigarettes Per Day: 20 ; Second Hand Exposure: No ; Hx Alcohol Use: No Hx Substance Use: No Results & Data Vital Signs Vital Signs - 24 hr 08/22/19 10:40 08/22/19 10:43 08/22/19 14:08 Temperature 37.3 C Temperature Source Oral Pulse Rate 72 Pulse Rate from SpO2 Sensor 77 Pulse Rhythm Regular Pulse Strength Normal Respiratory Rate 18 Respiratory Effort / Characteristics Non-Labored Spontaneous Respiratory Depth Normal Respiratory Pattern Regular Blood Pressure 135/73 135/73 152/73 H Blood Pressure Mean 93 101 102 Blood Pressure Position Lying Pulse Oximetry 97 99 Oxygen Delivery Method Room Air Sepsis Recent Fever Within 48 Hours No Sepsis New/Unexplained Change in Mental Status No Sepsis Action Taken by Nursing No Action Required Laboratory Data Result diagrams: 08/22/19 11:27 08/22/19 11:27 Lab Results 08/22/19 08/22/19 Range/Units 11:27 11:27 WBC 9.12 (4.8-10.8) K/uL RBC 4.32 (4.2-5.4) M/uL Hgb 13.6 (12.0-16.0) g/dL Hct 40.3 (37-47) % MCV 93.3 (80-100) fL MCH 31.5 (25-34) pg MCHC 33.7 (32-36) g/dL RDW Std Deviation 46.8 H (36.4-46.3) fL RDW Coeff of Isai 13.7 (11.5-14.5) % Plt Count 258 (130-400) K/uL MPV 9.5 (7.4-10.4) fL Immature Gran % (Auto) 0.2 % Neut % (Auto) 80.6 % Lymph % (Auto) 13.5 % Pepin % (Auto) 3.7 % Eos % (Auto) 1.8 % Baso % (Auto) 0.2 % Immature Gran # (Auto) 0.02 (0.00-0.02) K/uL Neut # (Auto) 7.35 H (1.4-6.5) K/uL Lymph # (Auto) 1.23 (1.2-3.4) K/uL Pepin # (Auto) 0.34 (0.11-0.59) K/uL Eos # (Auto) 0.16 (0-0.5) K/uL Baso # (Auto) 0.02 (0-0.2) K/uL Sodium 143 (136-145) mmol/L Potassium 3.4 L (3.5-5.1) mmol/L Chloride 108 H (98-107) mmol/L Carbon Dioxide 29 (21-32) mmol/L Anion Gap 6.0 (3-11) BUN 13 (7-18) mg/dl Creatinine 0.69 (0.6-1.2) mg/dl Est Cr Clr Drug Dosing 61.8 ml/min Est GFR ( Amer) 99.4 Est GFR (Non-Af Amer) 85.8 BUN/Creatinine Ratio 18.4 (10-20) Glucose 90 (70-99) mg/dl Calcium 9.0 (8.5-10.1) mg/dl Total Bilirubin 0.5 (0.2-1) mg/dl AST 16 (15-37) U/L ALT 11 L (12-78) U/L Alkaline Phosphatase 77 (45-117) U/L Total Protein 7.0 (6.4-8.2) gm/dl Albumin 3.8 (3.4-5.0) gm/dl Globulin 3.2 (2.5-4.0) gm/dl Albumin/Globulin Ratio 1.2 (0.9-2) Administered Medications Discontinued Medications Fentanyl Citrate (Fentanyl Citrate) 50 mcg IV NOW STA Stop: 08/22/19 11:07 Last Admin: 08/22/19 11:42 Dose: 50 mcg Documented by: [id number] Fentanyl Citrate (Fentanyl Citrate) 50 mcg IV NOW STA Stop: 08/22/19 12:56 Last Admin: 08/22/19 13:11 Dose: 50 mcg Documented by: [id number] Morphine Sulfate (Morphine Sulfate) 4 mg IV NOW STA Stop: 08/22/19 14:03 Last Admin: 08/22/19 14:20 Dose: 4 mg Documented by: [id number] Ondansetron HCl (Zofran) 4 mg IV ONE PRN PRN Reason: Nausea And Vomiting Stop: 09/21/19 14:01 Last Admin: 08/22/19 14:20 Dose: 4 mg Documented by: [id number] Discharge Plan Visit Data *Final* Discharge Date/Time: 08/22/19 16:07 Chief Complaint: Fall Stated Complaint: seizure/ fall, R hip pain ED Provider: Ramos Rodriguez ED Midlevel Provider: Alicia Zepeda Discharge Problem: Accidental fall from bed, Subcapital fracture of right hip Patient Disposition: Admitted As Inpatient Condition: Good Discharge Instructions Interventions: ED Discharge Assessment Last Done: 08/22/19 16:07 Discharge Problem: Accidental fall from bed Qualifiers: Encounter type: initial encounter Qualified Code(s): W06.XXXA - Fall from bed, initial encounter Subcapital fracture of right hip Qualifiers: Encounter type: initial encounter Fracture type: closed Qualified Code(s): S72.011A - Unspecified intracapsular fracture of right femur, initial encounter for closed fracture
[2019-08-22 11:39] LABS: Basophils # (auto) 0.02 K/uL (0-0.2); Basophils % (auto) 0.2 %; Eosinophils # (auto) 0.16 K/uL (0-0.5); Eosinophils % (auto) 1.8 %; Hematocrit (blood only) 40.3 % (37-47); Hemoglobin 13.6 g/dL (12.0-16.0); Immature Granulocytes # (auto) 0.02 K/uL (0.00-0.02); Immature Granulocytes % (auto) 0.2 %; Lymphocytes # (auto) 1.23 K/uL (1.2-3.4); Lymphocytes % (auto) 13.5 %; Mean Corpuscular Hemoglobin 31.5 pg (25-34); Mean Corpuscular Hgb Conc 33.7 g/dL (32-36); Mean Corpuscular Volume 93.3 fL (80-100); Mean Platelet Volume 9.5 fL (7.4-10.4); Monocytes # (auto) 0.34 K/uL (0.11-0.59); Monocytes % (auto) 3.7 %; Neutrophils # (auto) 7.35 K/uL (1.4-6.5); Neutrophils % (auto) 80.6 %; Platelet Count 258 K/uL (130-400); RDW Coefficient of Variation 13.7 % (11.5-14.5); RDW Standard Deviation 46.8 fL (36.4-46.3); Red Blood Count 4.32 M/uL (4.2-5.4); White Blood Count 9.12 K/uL (4.8-10.8)
[2019-08-22 11:55] LABS: Albumin Level 3.8 gm/dl (3.4-5.0); BUN Creatinine Ratio 18.4 (10-20); Creatinine Clr Calc Pharmacy 61.8 ml/min; Est GFR (African American) 99.4; Est GFR (Non-African American) 85.8; Potassium 3.4 mmol/L (3.5-5.1)
[2019-08-22 11:58] LABS: Albumin Globulin Ratio 1.2 (0.9-2); Bilirubin,Total 0.5 mg/dl (0.2-1); Globulin 3.2 gm/dl (2.5-4.0)
--- NOTE | 2019-08-22 12:25 | CT Scan Report ---
CT head/brain wo con CT DOSE: HISTORY: Trauma. Mental status change. fall, poss syncope TECHNIQUE: Multiaxial CT images of the head were performed without the use of intravenous contrast. A dose lowering technique was utilized adhering to the principles of ALARA. Comparison: None. Findings: The paranasal sinuses and mastoid air cells are clear. The calvarium and skull base are int act. The ventricles and sulci are within normal limits. There is no mass, hematoma, midline shift, or acute infarct. Impression: No acute intracranial abnormality. ACT 112: Negative or not required by law. The above report was generated using voice recognition software. It may contain grammatical, syntax or spelling errors. Electronically signed by: Shilo Moran M.D. 08/22/2019 12:24 PM
--- NOTE | 2019-08-22 12:27 | CT Scan Report ---
CERVICAL SPINE CT CT DOSE: 938.21 mGy.cm HISTORY: fall, eval trauma TECHNIQUE: Multiaxial CT images of the cervical spine were performed and reformatted in the sagittal and coronal plane without the use of contrast. A dose lowering technique was utilized adhering to th e principles of ALARA. COMPARISON: None. FINDINGS: No fractures. No subluxation. Prevertebral soft tissues and the C1-C2 interval are intact. No pneumothorax. Mild degenerative disc disease at C5-C6 and C6-C7. IMPRESSION: No fractures within the cervical spine. ACT 112: Negative or not required by law. Electronically signed by: Gaudencio Shah M.D. 08/22/2019 12:26 PM
--- NOTE | 2019-08-22 13:00 | XRay Report ---
XR hip RT 2V w pelvis CLINICAL HISTORY: fall, right hip pain trauma. Pain. COMPARISON: None. DISCUSSION: A subcapital fracture right hip. Slight bony impaction. No evidence for dislocation. Ther e is no evidence for soft tissue swelling. IMPRESSION: 1. Slightly impacted subcapital fracture right hip. ACT 112: Negative or not required by law. The above report was generated using voice recognition software. It may contain grammatical, syntax or spelling errors. Electronically signed by: Shilo Moran M.D. 08/22/2019 12:58 PM
--- NOTE | 2019-08-22 13:01 | XRay Report ---
XR femur RT 2V routine CLINICAL HISTORY: fall, right hip pain trauma. Pain. COMPARISON: None. DISCUSSION: Slightly impacted subcapital fracture right hip. No evidence for acetabular protrusion. R emainder the right femur is intact. There is no evidence for soft tissue swelling. IMPRESSION: Subcapital fracture right hip. The remainder of the femur is unremarkable. ACT 112: Negative or not required by law. The above report was generated using voice recognition software. It may contain grammatical, syntax or spelling errors. Electronically signed by: Shilo Moran M.D. 08/22/2019 1:00 PM
--- NOTE | 2019-08-22 13:03 | XRay Report ---
XR chest 1V not portable CLINICAL HISTORY: fall trauma. Pain. COMPARISON STUDY: No previous studies for comparison. FINDINGS: The bones soft tissues and hemidiaphragms are normal. The cardiomediastinal silhouette is n ormal. The lungs are clear. The pulmonary vasculature is normal. IMPRESSION: Negative chest. ACT 112: Negative or not required by law. The above report was generated using voice recognition software. It may contain grammatical, syntax or spelling errors. Electronically signed by: Shilo Moran M.D. 08/22/2019 1:01 PM
[2019-08-22] MEDS ORDERED: ONDANSETRON INJ 2 MG/ML 2 ML VIAL IV PRN ×2 (14:02→16:19)
[2019-08-22] MEDS ORDERED: MoRPHine SULFATE 4 MG/ML 1 ML CARP\\VIAL IV STA (14:02)
--- NOTE | 2019-08-22 14:46 | History & Physical Report ---
Date of Service August 22, 2019 Assessment & Plan (1) Subcapital fracture of right hip: Patient status post subcapital fracture of the right hip after falling from her bed. Neurovascularly intact, minimal pain at this time. Admit to medical floor Neurovascular checks every 4 hours Pain control with Tylenol 650 mg p.o. every 6 hours, oxycodone 5 mg p.o. every 4 hours, and morphine 2 mg IV every 2 hours as needed Tramadol as needed Nausea control with Zofran as needed Bowel regimen with Senokot, Colace, magnesium hydroxide and MiraLAX as needed Orthopedic surgery consultation appreciated N.p.o. after midnight for OR tomorrow Possible syncopepatient thinks that she may have passed out but is uncertain. She denies chest pain/palpitations/dizziness. Denies orthostatic symptoms. Troponin x1-, EKG unremarkable. Continue to monitor Consider echocardiogram Present on Admission?: Yes (2) Fever: Patient with fever x1 today at 16:21, T-max of 38.1. Chest x-ray with no evidence of pneumonia. Urinalysis pending Tylenol as needed Follow UA and culture Continue to monitor for source of infection Present on Admission?: Yes (3) COPD (chronic obstructive pulmonary disease): Patient with stable COPD. Denies chest pain/shortness of breath/cough/wheeze Albuterol as needed Continue to monitor Present on Admission?: Yes (4) Anxiety: Chronic. Stable. Continue escitalopram 20 mg p.o. daily Continue Ativan 0.5 mg p.o. every 8 hours as needed for anxiety F/E/NLR at 100 mL/h x 2 L, potassium chloride 40 mEq x 1 dose administered, will repeat chemistry with morning labs, n.p.o. after midnight ProphylaxisSCDs/CELSO stockings Codefull per discussion with patient Dispositionadmit to medical floor Present on Admission?: Yes History of Present Illness Chief Complaint: Hip fracture Primary Care Provider: SEBASTIAN [place] Diamond Benson is a pleasant 74-year-old female with history of stable COPD, non-Hodgkin lymphoma in remission x2 years, depression/anxiety presenting with right hip fracture. Patient reports that she fell out of bed today and landed on her right hip. She was unable to get up or bear weight. She thinks that she may have passed out. Denies chest pain/palpitations/dizziness. No additional complaints at this time. ER course: Fentanyl, morphine, Zofran Allergies Allergy/AdvReac Type Severity Reaction Status Date / Time iodine Allergy Severe RASH AND Verified 08/22/19 12:15 DIFFICULTY BREATHING Sulfa (Sulfonamide Allergy Severe RASH, Verified 08/22/19 12:15 Antibiotics) THROAT CLOSES amoxicillin AdvReac Mild SEVERE ABD Verified 08/22/19 12:15 PAIN/DIARHEA clavulanic acid AdvReac Mild SEVERE ABD Verified 08/22/19 12:15 PAIN/DIARHEA Home Medications Home Medications Medication Instructions Recorded Confirmed Type albuterol sulfate 0.63 mg INHALATION QID PRN 08/10/18 08/22/19 History docusate sodium [Colace] 200 mg PO HS 08/10/18 08/22/19 History ibuprofen 400 - 800 mg PO QID PRN 08/10/18 08/22/19 History lorazepam 0.5 mg tablet 0.5 mg PO Q8H PRN #60 tab 06/19/19 08/22/19 Rx fluticasone propionate 50 See Rx Instructions INTRANASAL 06/26/19 08/22/19 Rx mcg/actuation nasal DAILY #16 gm spray,suspension escitalopram oxalate 20 mg tablet 20 mg PO DAILY #90 tab 07/10/19 08/22/19 Rx albuterol sulfate 90 mcg/actuation 2 puff INHALATION QID PRN #18 gm 07/11/19 08/22/19 Rx aerosol inhaler tramadol 50 mg tablet 100 mg PO Q6H PRN #240 tab 07/18/19 08/22/19 Rx cholecalciferol (vitamin D3) 2,000 2,000 units PO DAILY #30 tab 08/01/19 08/22/19 Rx unit tablet ergocalciferol (vitamin D2) 50,000 50,000 units PO WEEKLY 56 Days #8 08/01/19 08/22/19 Rx unit capsule cap Past Med/Surg History Social History Preferred Language: Yakut Communication Ability: Effective Tax Processor Required: No Beliefs That Will Affect Care: None Current Living Situation: Family Other Information That Helps Us Care for You: No Feels Safe at Home: Yes Safety Concerns: Feels Safe At This Time Smoking Status: Current every day smoker Tobacco Type: cigarettes ; Cigarettes Per Day: 20 ; Do You Dip or Chew Tobacco: No ; Second Hand Exposure: Yes ; Tobacco Cessation Education Requested by Patient: Yes Hx Alcohol Use: No Hx Substance Use: No Review of Systems Review of Systems: All systems reviewed & are unremarkable except as noted in HPI & below Physical Exam Physical Exam: General: patient resting comfortably, NAD, non-toxic in appearance, AA&O x 4 Skin: warm, dry, intact, no rashes or lesions HEENT: NC/AT, PERRL, EOMI, anicteric sclera, conjunctiva without injection, external ear normal to inspection and nontender, nares patent, moist mucus membranes, dentition intact, no oropharyngeal lesions, neck supple, trachea midline, no LAD, no thyromegaly, no JVD Heart: +S1/S2, regular, no m/r/g Lungs: equal air entry bilaterally, no rales/rhonchi/wheezes Abd: +BS, soft, NT/ND, no masses/organomegaly/ascites Ext: warm, 2+ pulses in UE/LE bilaterally, no clubbing/cyanosis or edema, right lower extremity neurovascularly intact Neuro: nonfocal, patient AA&O x 4, speech intact, no facial droop, moving all extremities on command with equal strength 5/5 Results & Data Vital Signs (Past 12 Hours) Vital Signs Temp Pulse Resp BP Pulse Ox 08/22/19 14:08 152/73 H 99 08/22/19 10:43 135/73 08/22/19 10:40 37.3 C 72 18 135/73 97 Laboratory Results Lab Results 08/22/19 08/22/19 08/22/19 Range/Units 11:27 11:27 16:52 WBC 9.12 (4.8-10.8) K/uL RBC 4.32 (4.2-5.4) M/uL Hgb 13.6 (12.0-16.0) g/dL Hct 40.3 (37-47) % MCV 93.3 (80-100) fL MCH 31.5 (25-34) pg MCHC 33.7 (32-36) g/dL RDW Std Deviation 46.8 H (36.4-46.3) fL RDW Coeff of Isai 13.7 (11.5-14.5) % Plt Count 258 (130-400) K/uL MPV 9.5 (7.4-10.4) fL Immature Gran % (Auto) 0.2 % Neut % (Auto) 80.6 % Lymph % (Auto) 13.5 % [place] % (Auto) 3.7 % Eos % (Auto) 1.8 % Baso % (Auto) 0.2 % Immature Gran # (Auto) 0.02 (0.00-0.02) K/uL Neut # (Auto) 7.35 H (1.4-6.5) K/uL Lymph # (Auto) 1.23 (1.2-3.4) K/uL [place] # (Auto) 0.34 (0.11-0.59) K/uL Eos # (Auto) 0.16 (0-0.5) K/uL Baso # (Auto) 0.02 (0-0.2) K/uL Sodium 143 (136-145) mmol/L Potassium 3.4 L (3.5-5.1) mmol/L Chloride 108 H (98-107) mmol/L Carbon Dioxide 29 (21-32) mmol/L Anion Gap 6.0 (3-11) BUN 13 (7-18) mg/dl Creatinine 0.69 (0.6-1.2) mg/dl Est Cr Clr Drug Dosing 61.8 ml/min Est GFR ( Amer) 99.4 Est GFR (Non-Af Amer) 85.8 BUN/Creatinine Ratio 18.4 (10-20) Glucose 90 (70-99) mg/dl Calcium 9.0 (8.5-10.1) mg/dl Phosphorus 2.9 (2.5-4.9) mg/dl Magnesium 1.8 (1.8-2.4) mg/dl Total Bilirubin 0.5 (0.2-1) mg/dl AST 16 (15-37) U/L ALT 11 L (12-78) U/L Alkaline Phosphatase 77 (45-117) U/L Troponin I < 0.015 (0-0.045) ng/ml Total Protein 7.0 (6.4-8.2) gm/dl Albumin 3.8 (3.4-5.0) gm/dl Globulin 3.2 (2.5-4.0) gm/dl Albumin/Globulin Ratio 1.2 (0.9-2) Blood Type Antibody Screen 08/22/19 Range/Units 16:52 WBC (4.8-10.8) K/uL RBC (4.2-5.4) M/uL Hgb (12.0-16.0) g/dL Hct (37-47) % MCV (80-100) fL MCH (25-34) pg MCHC (32-36) g/dL RDW Std Deviation (36.4-46.3) fL RDW Coeff of Isai (11.5-14.5) % Plt Count (130-400) K/uL MPV (7.4-10.4) fL Immature Gran % (Auto) % Neut % (Auto) % Lymph % (Auto) % [place] % (Auto) % Eos % (Auto) % Baso % (Auto) % Immature Gran # (Auto) (0.00-0.02) K/uL Neut # (Auto) (1.4-6.5) K/uL Lymph # (Auto) (1.2-3.4) K/uL [place] # (Auto) (0.11-0.59) K/uL Eos # (Auto) (0-0.5) K/uL Baso # (Auto) (0-0.2) K/uL Sodium (136-145) mmol/L Potassium (3.5-5.1) mmol/L Chloride (98-107) mmol/L Carbon Dioxide (21-32) mmol/L Anion Gap (3-11) BUN (7-18) mg/dl Creatinine (0.6-1.2) mg/dl Est Cr Clr Drug Dosing ml/min Est GFR ( Amer) Est GFR (Non-Af Amer) BUN/Creatinine Ratio (10-20) Glucose (70-99) mg/dl Calcium (8.5-10.1) mg/dl Phosphorus (2.5-4.9) mg/dl Magnesium (1.8-2.4) mg/dl Total Bilirubin (0.2-1) mg/dl AST (15-37) U/L ALT (12-78) U/L Alkaline Phosphatase (45-117) U/L Troponin I (0-0.045) ng/ml Total Protein (6.4-8.2) gm/dl Albumin (3.4-5.0) gm/dl Globulin (2.5-4.0) gm/dl Albumin/Globulin Ratio (0.9-2) Blood Type A Positive Antibody Screen NEGATIVE Diagnostic Findings CERVICAL SPINE CT CT DOSE: 938.21 mGy.cm HISTORY: fall, eval trauma TECHNIQUE: Multiaxial CT images of the cervical spine were performed and reformatted in the sagittal and coronal plane without the use of contrast. A dose lowering technique was utilized adhering to the principles of ALARA. COMPARISON: None. FINDINGS: No fractures. No subluxation. Prevertebral soft tissues and the C1-C2 interval are intact. No pneumothorax. Mild degenerative disc disease at C5-C6 and C6-C7. IMPRESSION: No fractures within the cervical spine. ACT 112: Negative or not required by law. Electronically signed by: Gaudencio Shah M.D. 08/22/2019 12:26 PM Dictated: 08/22/19 1159 Transcribed: 08/22/19 1159 XR chest 1V not portable CLINICAL HISTORY: fall trauma. Pain. COMPARISON STUDY: No previous studies for comparison. FINDINGS: The bones soft tissues and hemidiaphragms are normal. The cardiomediastinal silhouette is normal. The lungs are clear. The pulmonary vasculature is normal. IMPRESSION: Negative chest. ACT 112: Negative or not required by law. The above report was generated using voice recognition software. It may contain grammatical, syntax or spelling errors. Electronically signed by: Shilo Moran M.D. 08/22/2019 1:01 PM Dictated: 08/22/19 130 Transcribed: 08/22/191300 XR femur RT 2V routine CLINICAL HISTORY: fall, right hip pain trauma. Pain. COMPARISON: None. DISCUSSION: Slightly impacted subcapital fracture right hip. No evidence for acetabular protrusion. Remainder the right femur is intact. There is no evidence for soft tissue swelling. IMPRESSION: Subcapital fracture right hip. The remainder of the femur is unremarkable. ACT 112: Negative or not required by law. The above report was generated using voice recognition software. It may contain grammatical, syntax or spelling errors. Electronically signed by: Shilo Moran M.D. 08/22/2019 1:00 PM Dictated: 08/22/19 1259 Transcribed: 08/22/191258 CT head/brain wo con CT DOSE: HISTORY: Trauma. Mental status change. fall, poss syncope TECHNIQUE: Multiaxial CT images of the head were performed without the use of intravenous contrast. A dose lowering technique was utilized adhering to the principles of ALARA. Comparison: None. Findings: The paranasal sinuses and mastoid air cells are clear. The calvarium and skull base are intact. The ventricles and sulci are within normal limits. There is no mass, hematoma, midline shift, or acute infarct. Impression: No acute intracranial abnormality. ACT 112: Negative or not required by law. The above report was generated using voice recognition software. It may contain grammatical, syntax or spelling errors. Electronically signed by: Shilo Moran M.D. 08/22/2019 12:24 PM Dictated: 08/22/19 1159 Transcribed: 08/22/19 1159 XR hip RT 2V w pelvis CLINICAL HISTORY: fall, right hip pain trauma. Pain. COMPARISON: None. DISCUSSION: A subcapital fracture right hip. Slight bony impaction. No evidence for dislocation. There is no evidence for soft tissue swelling. IMPRESSION: 1. Slightly impacted subcapital fracture right hip. ACT 112: Negative or not required by law. The above report was generated using voice recognition software. It may contain grammatical, syntax or spelling errors. Electronically signed by: Shilo Moran M.D. 08/22/2019 12:58 PM Dictated: 08/22/19 1257 Transcribed: 08/22/19 1257 ECG Additional Comments: EKG shows normal sinus rhythm at 66 bpm, normal axis, NJ = 174, QRS = 72, QTc = 436, no acute ischemic changes Code Status & VTE Plan Code Status Full code VTE Prophylaxis Plan VTE Prophylaxis will be ordered: Yes PG Care Time/CCT Total # of Minutes Spent Total Time Spent with Patient: Total time spent is greater than 50% in coordination of care (as documented) at patient's floor/unit and/or counseling patient: (1) COPD (chronic obstructive pulmonary disease) COPD type: unspecified COPD Qualified Code(s): J44.9 - Chronic obstructive pulmonary disease, unspecified (2) Fever Fever type: unspecified Qualified Code(s): R50.9 - Fever, unspecified (3) Subcapital fracture of right hip Encounter type: initial encounter Fracture type: closed Qualified Code(s): S72.011A - Unspecified intracapsular fracture of right femur, initial encounter for closed fracture
[2019-08-22] MEDS ORDERED: LORazepam 0.5 MG TAB PO PRN (16:19)
[2019-08-22] MEDS ORDERED: TRAMADOL HCL 50 MG TABLET PO PRN (16:19)
[2019-08-22] MEDS ORDERED: MAGNESIUM HYDROXIDE SUSP 30 ML UDC PO PRN (16:19)
[2019-08-22] MEDS ORDERED: OXYCODONE HCL IR 5 MG TAB (IMMEDIATE RELEASE) PO PRN (16:19)
[2019-08-22] MEDS ORDERED: bisacodyL 10 MG SUPP PR PRN (16:19)
[2019-08-22] MEDS ORDERED: POTASSIUM CHLORIDE 20 MEQ TABCR PO STA (16:19)
[2019-08-22] MEDS ORDERED: POLYETHYLENE (MIRALAX) 17 GM PACK PO PRN (16:19)
[2019-08-22] MEDS ORDERED: ACETAMINOPHEN 325 MG TAB PO PRN (16:19)
[2019-08-22] MEDS ORDERED: ALBUTEROL HFA INHALER 8.5 GM INH PRN (16:19)
[2019-08-22] MEDS ORDERED: NALOXONE HCL 0.4 MG/1 ML VIAL/CARP IV PRN (16:19)
[2019-08-22 17:29] LABS: Magnesium 1.8 mg/dl (1.8-2.4); Phosphorus 2.9 mg/dl (2.5-4.9); Troponin I < 0.015 ng/ml (0-0.045)
[2019-08-22] MEDS: LACTATED RINGER'S 1,000 ML IV SCH (17:48)
[2019-08-22] MEDS: MoRPHine SULFATE 2 MG/ML CARP IV PRN (18:00)
--- NOTE | 2019-08-22 19:03 | Orthopedic Consultation ---
Date of Consultation August 22, 2019 Assessment & Plan (1) Subcapital fracture of right hip: Assessment: Subcapital hip fracture on right minimally displaced. Valgus impacted Plan: Cannulated screw fixation tomorrow August 23 N.p.o. after midnight History of Present Illness Reason for Consultation: Chief complaint: Right hip pain History: Diamond is delightful she is 74 healthy suffered a fall this morning suffe red a fracture to her right hip is a closed hip fracture ground-level fall essentially nondisplaced valgus impacted femoral neck fracture on the right. I discussed the pathology with the patient were to proceed with surgery tomorrow mid afternoon Attending Physician: Leona Moore DO Allergies Allergy/AdvReac Type Severity Reaction Status Date / Time iodine Allergy Severe RASH AND Verified 08/22/19 12:15 DIFFICULTY BREATHING Sulfa (Sulfonamide Allergy Severe RASH, Verified 08/22/19 12:15 Antibiotics) THROAT CLOSES amoxicillin AdvReac Mild SEVERE ABD Verified 08/22/19 12:15 PAIN/DIARHEA clavulanic acid AdvReac Mild SEVERE ABD Verified 08/22/19 12:15 PAIN/DIARHEA Home Medications Home Medications Medication Instructions Recorded Confirmed Type albuterol sulfate 0.63 mg INHALATION QID PRN 08/10/18 08/22/19 History docusate sodium [Colace] 200 mg PO HS 08/10/18 08/22/19 History ibuprofen 400 - 800 mg PO QID PRN 08/10/18 08/22/19 History lorazepam 0.5 mg tablet 0.5 mg PO Q8H PRN #60 tab 06/19/19 08/22/19 Rx fluticasone propionate 50 See Rx Instructions INTRANASAL 06/26/19 08/22/19 Rx mcg/actuation nasal DAILY #16 gm spray,suspension escitalopram oxalate 20 mg tablet 20 mg PO DAILY #90 tab 07/10/19 08/22/19 Rx albuterol sulfate 90 mcg/actuation 2 puff INHALATION QID PRN #18 gm 07/11/19 08/22/19 Rx aerosol inhaler tramadol 50 mg tablet 100 mg PO Q6H PRN #240 tab 07/18/19 08/22/19 Rx cholecalciferol (vitamin D3) 2,000 2,000 units PO DAILY #30 tab 12/10/19 12/31/19 Rx unit tablet ergocalciferol (vitamin D2) 50,000 50,000 units PO WEEKLY 56 Days #8 08/01/19 08/22/19 Rx unit capsule cap Patient History Social History Preferred Language: Peruvian Communication Ability: Effective Technical Designer Required: No Beliefs That Will Affect Care: None Current Living Situation: Family Other Information That Helps Us Care for You: No Feels Safe at Home: Yes Safety Concerns: Feels Safe At This Time Smoking Status: Current every day smoker Tobacco Type: cigarettes ; Cigarettes Per Day: 20 ; Do You Dip or Chew Tobacco: No ; Second Hand Exposure: Yes ; Tobacco Cessation Education Requested by Patient: Yes Hx Alcohol Use: No Hx Substance Use: No Review of Systems Review of Systems: She denies any constitutional symptoms of fever sweats chills shakes. No unexplained weight loss Denies chest pain shortness of breath No HEENT complaints No nausea vomiting urgency frequency Positive for musculoskeletal right hip pain Physical Exam Physical Exam: Blood pressure 178/60 pulse regular 86. Afebrile HEENT is normal Normal rate rhythm cardiac examination about 80 bpm Lungs have slight wheeze Abdomen soft nontender Nelly's are well aligned there is no external or internal rotation. Pulses good circulation mild pain Results & Data Vital Signs (Past 12 Hours) Vital Signs Temp Pulse Pulse Resp BP BP Pulse Ox 08/22/19 16:21 38.1 C H 86 16 178/62 H 94 08/22/19 15:23 80 20 157/62 H 94 08/22/19 14:08 152/73 H 99 08/22/19 10:43 135/73 08/22/19 10:40 37.3 C 72 18 135/73 97 PG Care Time/CCT Total # of Minutes Spent Total Time Spent with Patient: Total time spent is greater than 50% in coordination of care (as documented) at patient's floor/unit and/or counseling patient: (1) Subcapital fracture of right hip Encounter type: initial encounter Fracture type: closed Qualified Code(s): S72.011A - Unspecified intracapsular fracture of right femur, initial encounter for closed fracture
[2019-08-22] MEDS ORDERED: DOCUSATE SODIUM 100 MG CAP PO SCH (21:00)
[2019-08-22] MEDS ORDERED: DOCUSATE SODIUM/SENNA 50/8.6MG TAB PO SCH (21:00)
[2019-08-22 22:22] LABS: Appearance Urine Clear (Clear); Bacteria Urine Automated Negative (Negative); Bilirubin Urine Negative (Negative); Blood Urine 1+ (Negative); Color Urine Yellow; Glucose Urine UA Negative (Negative); Ketones Urine Negative (Negative); Leukocyte Esterase Urine Negative (Negative); Nitrite Urine Negative (Negative); Protein Urine Negative (Negative); Specific Gravity Urine 1.017 (1.000-1.030); Urobilinogen Urine Negative (Negative); pH Urine 8.5 (4.5-7.5)
[2019-08-23] MEDS: LACTATED RINGER'S 1,000 ML IV SCH (03:49)
[2019-08-23] MEDS: MoRPHine SULFATE 2 MG/ML CARP IV PRN (03:49)
[2019-08-23 06:57] LABS: Basophils # (auto) 0.01 K/uL (0-0.2); Basophils % (auto) 0.1 %; Eosinophils # (auto) 0.24 K/uL (0-0.5); Eosinophils % (auto) 3.1 %; Hematocrit (blood only) 34.7 % (37-47); Hemoglobin 11.5 g/dL (12.0-16.0); Immature Granulocytes # (auto) 0.02 K/uL (0.00-0.02); Immature Granulocytes % (auto) 0.3 %; Lymphocytes # (auto) 1.56 K/uL (1.2-3.4); Lymphocytes % (auto) 20.4 %; Mean Corpuscular Hgb Conc 33.1 g/dL (32-36); Mean Corpuscular Volume 93.5 fL (80-100); Mean Platelet Volume 9.5 fL (7.4-10.4); Monocytes # (auto) 0.56 K/uL (0.11-0.59); Monocytes % (auto) 7.3 %; Neutrophils # (auto) 5.24 K/uL (1.4-6.5); Neutrophils % (auto) 68.8 %; Platelet Count 215 K/uL (130-400); RDW Coefficient of Variation 13.8 % (11.5-14.5); RDW Standard Deviation 47.6 fL (36.4-46.3); Red Blood Count 3.71 M/uL (4.2-5.4); White Blood Count 7.63 K/uL (4.8-10.8)
[2019-08-23 07:26] LABS: BUN Creatinine Ratio 15.4 (10-20); Calcium 8.6 mg/dl (8.5-10.1); Creatinine Clr Calc Pharmacy 64.4 ml/min; Est GFR (African American) 99.4; Est GFR (Non-African American) 85.8; Potassium 3.7 mmol/L (3.5-5.1)
--- NOTE | 2019-08-23 08:15 | History & Physical Bridge Note ---
Date of Service August 23, 2019 History & Physical Bridge Note I have examined the patient, reviewed the History & Physical and in the interval since the performance of the History & Physical I have noted the following changes of clinical significance: no changes noted
[2019-08-23] MEDS ORDERED: CHOLECALCIFEROL 1,000 UNITS TAB PO SCH (09:00)
[2019-08-23] MEDS ORDERED: ESCITALOPRAM OXALATE 20 MG TAB PO SCH (09:00)
[2019-08-23] MEDS ORDERED: FLUTICASONE PROPIONATE NA SPR 16 GM BTL SCH (09:00)
[2019-08-23] MEDS ORDERED: MoRPHine SULFATE 4 MG/ML 1 ML CARP\\VIAL IV PRN ×2 (09:18→16:19)
[2019-08-23] MEDS ORDERED: ACETAMINOPHEN 1,000 MG/100 ML VIAL IV SCH (10:00)
--- NOTE | 2019-08-23 10:31 | Hospitalist Progress Note ---
Date of Service August 23, 2019 Assessment & Plan (1) Subcapital fracture of right hip: - XR - slightly impacted subcapital fx R hip -- results of falling from bed possibly syncope? she thinks she may have passed out but not sure -- Vitals stable; EKG unremarkable - if issues here consider echocardiogram - Increased pain today - will MARIBELL Tylenol 1000 mg IV Q8H and increase morphine to 4 mg IV PRN; Tramadol PRN - Continue bowel regimen - Orthopedics following - plan for OR today (2) Fever: - Patient with fever on admission and peaked 38.5 and currently normal - no evidence of infection at this time and will monitor -- Maybe drug fever? - Tylenol (3) COPD (chronic obstructive pulmonary disease): - Patient with stable COPD/No evidence of exacerbation Albuterol as needed Continue to monitor (4) Anxiety: - Chronic/Stable - Lexapro 20 mg daily; Ativan PRN Disposition: PT/OT after surgical intervention; disposition pending hospital course Subjective Reports ongoing pain. Reports morphine helps a bit but is minimal. Reports Fentanyl in ED didn't help either. Will MARIBELL IV Tylenol and increase morphine. Due for surgery this afternoon. Complaining of dry mouth but no other acute complaints Review of Systems Constitutional: no fever and no chills Ear, Nose, Mouth, Throat: + dry mouth Respiratory: no cough and no dyspnea Cardiovascular: no chest pain, no palpitations, no lightheadedness and no edema Gastrointestinal: no abdominal pain, no nausea, no vomiting, no constipation and no diarrhea/loose stools Genitourinary: no dysuria Musculoskeletal: + joint pain (R Hip pain) Integumentary: no rash Neurologic: no tingling and no numbness Physical Exam Constitutional: WD/WN, vitals as above Eyes: + anicteric sclerae ENMT: Ears: no hearing impairment Neck: trachea midline Respiratory: normal respiratory effort, lungs clear to auscultation Cardiovascular: RRR, no murmur, no edema Gastrointestinal (Abdomen): Inspection/Auscultation: normal bowel sounds Percussion/Palpation: abdomen soft; abdomen nontender Musculoskeletal: Head/Neck/Chest: normocephalic and head atraumatic R hip with no obvious deformity at hip; no open wounds or ecchymosis; movement of toes intact Skin: no rashes, warm and dry Neurologic: moves all extremities (did not perform with R hip due to acute fx but toes with movement) Psychiatric: A+Ox3, euthymic affect Results & Data Vital Signs (Past 12 Hours) Vital Signs Temp Pulse Resp BP Pulse Ox Pulse Ox 08/23/19 07:06 36.7 C 72 16 118/66 91 08/23/19 04:00 95 08/23/19 01:45 37.3 C 08/23/19 00:00 94 08/22/19 23:52 37.8 C H 79 16 129/58 L 94 08/22/19 22:45 38.5 C H 126/66 PG Care Time/CCT Total # of Minutes Spent Total Time Spent with Patient: Total time spent is greater than 50% in coordination of care (as documented) at patient's floor/unit and/or counseling patient: (1) Subcapital fracture of right hip Encounter type: initial encounter Fracture type: closed Qualified Code(s): S72.011A - Unspecified intracapsular fracture of right femur, initial encounter for closed fracture (2) Fever Fever type: unspecified Qualified Code(s): R50.9 - Fever, unspecified (3) COPD (chronic obstructive pulmonary disease) COPD type: unspecified COPD Qualified Code(s): J44.9 - Chronic obstructive pulmonary disease, unspecified
--- NOTE | 2019-08-23 11:30 | Anesthesiology Consultation ---
Date of Service August 23, 2019 Assessment & Plan Chart Review Chart Review: data entry assistant initiated History Surgery Operation Date: 08/23/19 12:00 Proposed Procedures p ORIF Hip Cannulated Screw(Right) - Didier Avila DO Height/Weight Height: 5 ft 5 in Weight: 62.5 kg Allergies Allergy/AdvReac Type Severity Reaction Status Date / Time iodine Allergy Severe RASH AND Verified 08/22/19 12:15 DIFFICULTY BREATHING Sulfa (Sulfonamide Allergy Severe RASH, Verified 08/22/19 12:15 Antibiotics) THROAT CLOSES amoxicillin AdvReac Mild SEVERE ABD Verified 08/22/19 12:15 PAIN/DIARHEA clavulanic acid AdvReac Mild SEVERE ABD Verified 08/22/19 12:15 PAIN/DIARHEA Medications Home Medications Medication Instructions Recorded Confirmed Last Taken albuterol sulfate 0.63 mg INHALATION QID PRN 08/10/18 08/22/19 Unknown docusate sodium [Colace] 200 mg PO HS 08/10/18 08/22/19 09/08/18 ibuprofen 400 - 800 mg PO QID PRN 08/10/18 08/22/19 09/08/18 lorazepam 0.5 mg tablet 0.5 mg PO Q8H PRN #60 tab 06/19/19 08/22/19 Unknown fluticasone propionate 50 See Rx Instructions INTRANASAL 06/26/19 08/22/19 Unknown mcg/actuation nasal DAILY #16 gm spray,suspension escitalopram oxalate 20 mg tablet 20 mg PO DAILY #90 tab 07/10/19 08/22/19 Unknown albuterol sulfate 90 mcg/actuation 2 puff INHALATION QID PRN #18 gm 07/11/19 08/22/19 Unknown aerosol inhaler tramadol 50 mg tablet 100 mg PO Q6H PRN #240 tab 07/18/19 08/22/19 Unknown cholecalciferol (vitamin D3) 2,000 2,000 units PO DAILY #30 tab 08/01/19 08/22/19 Unknown unit tablet ergocalciferol (vitamin D2) 50,000 50,000 units PO WEEKLY 56 Days #8 08/01/19 08/22/19 Unknown unit capsule cap Active Medications Generic Name Dose Route Start Last Admin Trade Name Freq PRN Reason Stop Dose Admin Acetaminophen 650 mg 08/22/19 16:19 08/22/19 22:51 Tylenol PO 09/21/19 16:18 650 mg Q6H PRN Administration MILD Pain (Scale 1,2,3) Docusate Sodium 200 mg 08/22/19 21:00 08/22/19 21:45 Colace PO 09/21/19 20:59 200 mg HS MARIBELL Administration Escitalopram Oxalate 20 mg 08/23/19 09:00 08/23/19 07:50 Lexapro Tab PO 09/22/19 08:59 Not Given DAILY MARIBELL Fluticasone Propionate 1 - 2 sprays 08/23/19 09:00 08/23/19 07:50 Flonase NA 09/22/19 08:59 Not Given DAILY MARIBELL Lactated Ringer's 1,000 mls @ 100 mls/hr 08/22/19 16:19 08/23/19 03:49 Lr IV 08/23/19 12:18 100 mls/hr .Q10H MARIBELL Administration Acetaminophen 1,000 mg in 100 mls @ 400 mls/hr 08/23/19 10:00 08/23/19 09:59 Ofirmev IV 08/26/19 09:59 Infused Q8 MARIBELL Infusion Ondansetron HCl 4 mg 08/22/19 16:19 08/23/19 06:28 Zofran IV 09/21/19 16:18 4 mg Q6H PRN Administration Nausea And Vomiting Oxycodone HCl 5 mg 08/22/19 16:19 08/22/19 21:48 Roxicodone Immediate Rel PO 09/05/19 16:18 5 mg Q4H PRN Administration MODERATE Pain (Scale 4,5,6) Senna/Docusate Sodium 2 tab 08/22/19 21:00 08/22/19 21:45 Senokot S PO 09/21/19 20:59 2 tab HS MARIBELL Administration Vitamin D 2,000 units 08/23/19 09:00 08/23/19 07:50 Vitamin D3 PO 09/22/19 08:59 Not Given DAILY MARIBELL Past Medical History Medical History Chronic obstructive pulmonary disease patient was told she was "pre" Non-Hodgkin lymphoma removed lymph node from right arm last dose chemo 09/2017 Past Surgical History Surgical History History of bilateral tubal ligation History of bronchoscopy History of dilatation and curettage History of herniorrhaphy left inguinal hernia repair History of total abdominal hysterectomy and bilateral salpingo-oophorectomy History of vascular access device infusaport insertion Hx of local excision of skin lesion skin cancer removed from arm left Social History Smoking Status: Current every day smoker tobacco type: cigarettes Smoking cigarettes per day: 20 Do You Dip or Chew Tobacco: No Hx Alcohol Use: No Hx Substance Use: No substance use type: does not use Physical Exam Vital Signs Last Vital Signs Temp 36.7 C 08/23/19 07:06 Pulse 72 08/23/19 07:06 Resp 16 08/23/19 07:06 BP 118/66 08/23/19 07:06 Pulse Ox 91 08/23/19 07:06 Testing Laboratory Results 08/23/19 06:18 08/23/19 06:18 Urine Color Yellow 08/22/19 22:00 Urine Appearance Clear (Clear) 08/22/19 22:00 Urine pH 8.5 (4.5-7.5) H 08/22/19 22:00 Ur Specific Gary 1.017 (1.000-1.030) 08/22/19 22:00 Urine Protein Negative (Negative) 08/22/19 22:00 Urine Glucose (UA) Negative (Negative) 08/22/19 22:00 Urine Ketones Negative (Negative) 08/22/19 22:00 Urine Nitrite Negative (Negative) 08/22/19 22:00 Ur Leukocyte Esterase Negative (Negative) 08/22/19 22:00 Urine WBC (Auto) 1-5 /hpf (0-5) 08/22/19 22:00 Urine RBC (Auto) 10-30 /hpf (0-4) H 08/22/19 22:00 U Hyaline Cast (Auto) 1-5 /lpf (0-5) 08/22/19 22:00 U Epithel Cells (Auto) 10-20 /lpf (0-5) H 08/22/19 22:00 Urine Bacteria (Auto) Negative (Negative) 08/22/19 22:00 Blood Type A Positive 08/22/19 16:52 Antibody Screen NEGATIVE 08/22/19 16:52 Electrocardiogram Date: 08/22/19 Findings: + NSR @ Chest X-Ray Date: 08/22/19 Findings: + NAD Other Testing Head CT: negative
[2019-08-23] MEDS ORDERED: fentaNYL citrate 100 MCG/2 ML VIAL ONE ×3 (11:41→14:22)
[2019-08-23] MEDS ORDERED: LIDOCAINE HCL 2% 2 ML VIAL/AMP(20MG/ML) INFIL ONE (13:21)
[2019-08-23] MEDS ORDERED: PROPOFOL IV EMULSION 10 MG/ML 20 ML VIAL IV ONE (13:21)
[2019-08-23] MEDS ORDERED: ONDANSETRON INJ 2 MG/ML 2 ML VIAL ONE (13:21)
[2019-08-23] MEDS ORDERED: DEXAMETHASONE SOD INJ 4 MG/ML VIAL ONE (13:21)
[2019-08-23] MEDS ORDERED: PHENYLEPHRINE 100MCG/ML 5ML SYR ONE (13:21)
--- NOTE | 2019-08-23 14:06 | Post Operative Brief Note ---
PG Immediate Post Op with CF Date of Surgery August 23, 2019 Pre & Post Diagnosis Operation Date: 08/23/19 12:00 Pre-Op Diagnosis: HIP FRACTURE Post-Op Diagnosis: HIP FRACTURE I identified the patient and participated in the time-out.: Yes Procedure Operation Date: 08/23/19 12:00 Actual Procedures p Open reduction internal fixation Hip Cannulated Screw(Right) - Didier Avila DO Surgeon Didier Avila DO [employer] Mechanic Breezy Estimated Blood Loss 10 Findings Consistent with Post-Op Diagnosis Specimens Specimen Description: none per surgeon Drains Ca Catheter Complications 0 Disposition Accompanied Patient To Recovery: Yes
[2019-08-23] MEDS ORDERED: ATROPINE SULFATE 0.1 MG/ML 10ML SYR IV PRN (14:14)
[2019-08-23] MEDS ORDERED: ONDANSETRON INJ 2 MG/ML 2 ML VIAL IV PRN ×2 (14:14→16:29)
[2019-08-23] MEDS ORDERED: ePHEDrine sulfate 50 MG/ML AMP IV PRN (14:14)
[2019-08-23] MEDS ORDERED: HYDROmorphone INJ 1 MG/ML SYRINGE IV PRN (14:14)
--- NOTE | 2019-08-23 14:16 | Operative Report ---
PG Post Operative Report Pre & Post Diagnosis Operation Date: 08/23/19 12:00 Pre-Op Diagnosis: HIP FRACTURE Post-Op Diagnosis: HIP FRACTURE I identified the patient and participated in the time-out.: Yes Procedure Operation Date: 08/23/19 12:00 Actual Procedures p Open reduction internal fixation Hip Cannulated Screw(Right) - Didier Avila DO Surgeon Didier Avila DO Synthetic Filament Extruder Breezy Estimated Blood Loss 10 Findings Consistent with Post-Op Diagnosis Specimens No specimens Drains No drains Complications none Disposition Accompanied Patient To Recovery: Yes Description of Procedure Patient was taken to the operating room a general LMA anesthetic provided the patient placed on the fracture table he was scrubbed prepped draped sterile provisional x-rays obtained demonstrating good reduction of her hip fracture. Scrubbed her twice once with alcohol once with ChloraPrep. He was draped sterile. Formal timeout taken we commenced with surgery. I placed a guidewire over the femoral neck get an approximate insertion starting point. Made a 2 cm skin incision the guidewire cross of the lesser trochanter underneath the greater trochanter. Is both set her on the lateral plane close to the calcar on the AP plane. This was advanced measured skin drilled appropriate screw place. Repleted this twice 1 screw a little more superior on the AP annual lateral planes 1 superior on the AP plane and inferior on the lateral plane. I was pleased with the fixation. Formal x-rays taken We irrigated closed in layers. Sterile dressing applied patient extubated to PACU improved stable condition Sponge and needle count correct No complication I attest to the content of the Intraoperative Record and any orders documented therein. Any exceptions are noted below.
[2019-08-23] MEDS: fentaNYL citrate 100 MCG/2 ML VIAL IV PRN ×4 (14:24→14:51)
--- NOTE | 2019-08-23 14:37 | Anesthesiology Progress Note ---
Date of Service August 23, 2019 Anesthesia Post Procedure Vital Signs Vital Signs: Temp Pulse Pulse Resp BP Pulse Ox Pulse Ox 08/23/19 14:25 81 17 127/68 100 08/23/19 14:15 77 15 158/63 H 100 08/23/19 14:08 36.5 C 84 19 157/60 H 100 08/23/19 07:06 36.7 C 72 16 118/66 91 08/23/19 04:00 95 08/23/19 01:45 37.3 C 08/23/19 00:00 94 08/22/19 23:52 37.8 C H 79 16 129/58 L 94 08/22/19 22:45 38.5 C H 126/66 08/22/19 16:21 38.1 C H 86 16 178/62 H 94 08/22/19 15:23 80 20 157/62 H 94 Pain Intensity Right Hip: Pain Intensity: 5 Transfer of Care Handoff Completed per policy Notes Mental Status: alert / awake / arousable and participated in evaluation Patient Amnestic to Procedure: Yes Nausea / Vomiting: adequately controlled Pain: adequately controlled Airway Patency, RR, SpO2: stable & adequate BP & HR: stable & adequate Hydration State: stable & adequate Anesthetic Complications: no major complications apparent and Pt Satisfied with anesthetic care
[2019-08-23] MEDS ORDERED: CEFAZOLIN 1000MG 1,000 MG/7.5 ML SYR IV ONE (15:21)
[2019-08-23] MEDS ORDERED: ERGOCALCIFEROL 50,000 UNITS CAP PO SCH (15:31)
[2019-08-23] MEDS ORDERED: ALBUTEROL HFA 8 GM INHALER INH PRN (15:31)
--- NOTE | 2019-08-23 15:35 | Fluoroscopy Report ---
INTRAOPERATIVE RADIOGRAPHS CLINICAL HISTORY: Open reduction and internal fixation of the right hip. Fluoroscopy time: 62 seconds. FINDINGS: 2 spot fluoroscopic views of the right hip are correlated with radiographs dated 08/22/2019 . 3 intertrochanteric cortical lag screws have been placed, transfixing an impacted subcapital femora l fracture. Near-anatomic alignment is maintained. The orthopedic hardware appears intact. IMPRESSION: Intraoperative images of the right hip as above. Electronically signed by: Jerald Dennis M.D. 08/23/2019 3:33 PM
[2019-08-23] MEDS ORDERED: bisacodyL 5 MG TABEC PO PRN (16:14)
[2019-08-23] MEDS ORDERED: LORazepam 0.5 MG TAB PO PRN (16:19)
[2019-08-23] MEDS ORDERED: POLYETHYLENE (MIRALAX) 17 GM PACK PO PRN (16:29)
[2019-08-23] MEDS: OXYCODONE HCL IR 5 MG TAB (IMMEDIATE RELEASE) PO PRN ×2 (16:37→20:29)
[2019-08-23] MEDS: ACETAMINOPHEN 325 MG TAB PO PRN ×2 (17:51→22:43)
[2019-08-23] MEDS: DOCUSATE SODIUM 100 MG CAP PO SCH (20:29)
[2019-08-23] MEDS: ASPIRIN 81 MG ECTAB PO SCH (20:29)
[2019-08-23] MEDS: CEFAZOLIN 1000MG 1,000 MG/7.5 ML SYR IV SCH (22:39)
[2019-08-24] MEDS: OXYCODONE HCL IR 5 MG TAB (IMMEDIATE RELEASE) PO PRN ×4 (00:42→20:54)
[2019-08-24] MEDS: CEFAZOLIN 1000MG 1,000 MG/7.5 ML SYR IV SCH (06:07)
--- NOTE | 2019-08-24 08:39 | Anesthesiology Progress Note ---
Date of Service August 24, 2019 Anesthesia Post Procedure Vital Signs Vital Signs: Temp Pulse Pulse Resp BP Pulse Ox 08/24/19 07:53 37.1 C 75 16 132/74 96 08/24/19 03:13 36.8 C 75 18 126/76 97 08/23/19 23:36 36.7 C 83 18 133/61 94 08/23/19 19:28 37.4 C 90 16 133/66 98 08/23/19 17:30 36.9 C 80 20 124/69 96 08/23/19 16:29 37.2 C 86 18 108/64 96 08/23/19 16:00 36.6 C 84 18 124/61 96 08/23/19 15:30 36.8 C 83 20 118/66 94 08/23/19 15:15 80 21 137/60 95 08/23/19 15:05 36.9 C 76 19 135/62 96 08/23/19 14:55 76 16 132/65 96 08/23/19 14:45 78 17 135/68 95 08/23/19 14:35 82 16 147/59 H 95 08/23/19 14:25 81 17 127/68 100 08/23/19 14:15 77 15 158/63 H 100 08/23/19 14:08 36.5 C 84 19 157/60 H 100 Pain Intensity Right Hip: Pain Intensity: 6 Notes Mental Status: alert / awake / arousable and participated in evaluation Nausea / Vomiting: adequately controlled Pain: adequately controlled Airway Patency, RR, SpO2: stable & adequate BP & HR: stable & adequate Hydration State: stable & adequate
[2019-08-24] MEDS ORDERED: FLUTICASONE PROPIONATE NA SPR 16 GM BTL SCH (09:00)
[2019-08-24] MEDS ORDERED: ASPIRIN 81 MG ECTAB PO SCH (09:00)
[2019-08-24] MEDS: ESCITALOPRAM OXALATE 20 MG TAB PO SCH (09:26)
[2019-08-24] MEDS: CHOLECALCIFEROL 1,000 UNITS TAB PO SCH (09:26)
[2019-08-24] MEDS: ASPIRIN 81 MG ECTAB PO SCH ×2 (09:26→20:52)
--- NOTE | 2019-08-24 12:29 | Hospitalist Progress Note ---
Date of Service August 24, 2019 Assessment & Plan (1) Subcapital fracture of right hip: - XR showed slightly impacted subcapital fx R hip -- results of falling from bed possibly from syncopal episode. - EKG negative; will order echo for further evaluation of possible syncope. - Ortho consulted, s/p ORIF on 08/23/2019. - DVT ppx with ASA 81 mg BID. - Monitor CBC frequently to evaluate for acute blood loss anemia. - PT/OT for discharge -- will likely require rehab. (2) Fever: - Patient with fever on admission and peaked 38.5 - no evidence of infection at this time. - Tylenol prn. Has been afebrile >24 hours. (3) COPD (chronic obstructive pulmonary disease): - No acute exacerbation noted at this time. - Albuterol prn. 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 - Completed 6 cycles R-CHOP, last dose in Sep 2017. - Follows with Dr. Medina. (5) Anxiety: - Lexapro 20 mg daily; Ativan PRN DVT ppx: ASA 81 mg BID; SCDs Dispo: PT/OT evaluation - will likely require rehab placement. Supervising Physician Co-Signing Physician Notes PA Supervision Note: I did not personally see or examine the patient today, but I verified all li points of GUADALUPE Jimenez's assessment and plan with the following exceptions/additions: None Subjective Pt is doing well - reports she did not sleep well last night but pain is controlled. Is passing gas, no BM yet. Ca in place, good urine output noted. Review of Systems Review of Systems: All systems reviewed & are unremarkable except as noted in HPI & below Constitutional: + fatigue and + weakness; no fever, no chills and no anorexia Respiratory: no cough, no dyspnea and no dyspnea on exertion Cardiovascular: no chest pain, no palpitations and no edema Gastrointestinal: + constipation; no abdominal pain and no nausea Genitourinary: no difficulty urinating Musculoskeletal: + joint pain; no back pain Integumentary: no non-healing lesions Physical Exam Physical Exam: General: Resting comfortably HEENT: NC/AT; PERRLA with EOMI; [place] conjunctiva, MMM. No erythema of posterior pharynx Neck: Supple and nontender Cardiac: RRR Lungs: CTA bilaterally Abdomen: Bowel normoactive X 4; Nontender to palpation Extremities: Warm. No edema present. Dressing in place over right hip, no discharge noted. Neuro: No focal weakness Skin: No rash Results & Data Vital Signs (Past 12 Hours) Vital Signs Temp Pulse Resp BP Pulse Ox 08/24/19 10:24 94 08/24/19 07:53 37.1 C 75 16 132/74 96 08/24/19 03:13 36.8 C 75 18 126/76 97 PG Care Time/CCT Total # of Minutes Spent Total Time Spent with Patient: Total time spent is greater than 50% in coordination of care (as documented) at patient's floor/unit and/or counseling patient: (1) Fever Fever type: unspecified Qualified Code(s): R50.9 - Fever, unspecified (2) Subcapital fracture of right hip Encounter type: initial encounter Fracture type: closed Qualified Code(s): S72.011A - Unspecified intracapsular fracture of right femur, initial encounter for closed fracture (3) COPD (chronic obstructive pulmonary disease) COPD type: unspecified COPD Qualified Code(s): J44.9 - Chronic obstructive pulmonary disease, unspecified
[2019-08-24] MEDS: DOCUSATE SODIUM 100 MG CAP PO SCH (20:52)
[2019-08-25] MEDS: OXYCODONE HCL IR 5 MG TAB (IMMEDIATE RELEASE) PO PRN ×4 (03:57→20:41)
[2019-08-25 05:36] LABS: Hematocrit (blood only) 33.7 % (37-47); Hemoglobin 11.3 g/dL (12.0-16.0); Mean Corpuscular Hemoglobin 31.7 pg (25-34); Mean Corpuscular Hgb Conc 33.5 g/dL (32-36); Mean Corpuscular Volume 94.4 fL (80-100); Mean Platelet Volume 9.5 fL (7.4-10.4); Platelet Count 200 K/uL (130-400); RDW Coefficient of Variation 13.7 % (11.5-14.5); RDW Standard Deviation 47.6 fL (36.4-46.3); Red Blood Count 3.57 M/uL (4.2-5.4); White Blood Count 7.61 K/uL (4.8-10.8)
[2019-08-25 05:56] LABS: BUN Creatinine Ratio 13.1 (10-20); Calcium 8.6 mg/dl (8.5-10.1); Creatinine Clr Calc Pharmacy 67.3 ml/min; Est GFR (African American) 100.9; Potassium 3.8 mmol/L (3.5-5.1)
--- NOTE | 2019-08-25 07:18 | Orthopedic Progress Note ---
Date of Service August 25, 2019 Assessment & Plan (1) Subcapital fracture of right hip: Assessment: 2 days postoperative for cannulated screw fixation of the right hip. Appears stable Plan: She will be discharged to a rehabilitation facility soon as a bed becomes available. Recommend touch weightbearing on the right lower extremity for next 1 month. Follow-up in the office will be in approximately 2 weeks Present on Admission?: Yes Subjective Pain seems relatively controlled regard to her right hip fracture. Has been out of bed has been ambulatory Review of Systems Review of Systems: Denies any fever sweats chills No chest pain shortness of breath Denies nausea vomiting Results & Data Vital Signs (Past 12 Hours) Vital Signs Temp Pulse Resp BP Pulse Ox 08/25/19 00:05 37.3 C 77 18 146/78 H 93 PG Care Time/CCT Total # of Minutes Spent Total Time Spent with Patient: Total time spent is greater than 50% in coordination of care (as documented) at patient's floor/unit and/or counseling patient: (1) Subcapital fracture of right hip Encounter type: initial encounter Fracture type: closed Qualified Code(s): S72.011A - Unspecified intracapsular fracture of right femur, initial encounter for closed fracture
[2019-08-25] MEDS: ASPIRIN 81 MG ECTAB PO SCH ×2 (08:47→20:36)
[2019-08-25] MEDS: CHOLECALCIFEROL 1,000 UNITS TAB PO SCH (08:47)
[2019-08-25] MEDS: ESCITALOPRAM OXALATE 20 MG TAB PO SCH (08:47)
--- NOTE | 2019-08-25 16:09 | Hospitalist Progress Note ---
Date of Service August 25, 2019 Assessment & Plan (1) Subcapital fracture of right hip: - XR showed slightly impacted subcapital fx R hip -- results of falling from bed possibly from syncopal episode. - EKG negative; TTE showed preserved EF, no valvular abnormalities. - Ortho consulted, s/p ORIF on 08/23/2019. - DVT ppx with ASA 81 mg BID. - Monitor CBC to evaluate for acute blood loss anemia - H/H is stable. - PT/OT -- discharge to [facility] pending acceptance. (2) Fever: - Patient with fever on admission and peaked 38.5 - no evidence of infection at this time. - Tylenol prn. Has been afebrile >48 hours. (3) COPD (chronic obstructive pulmonary disease): - No acute exacerbation noted at this time. - Albuterol prn. 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 - Completed 6 cycles R-CHOP, last dose in Sep 2017. - Follows with Dr. Medina. (5) Anxiety: - Lexapro 20 mg daily; Ativan PRN DVT ppx: ASA 81 mg BID; SCDs Dispo: PT/OT evaluation - discharge to [facility] pending acceptance. Supervising Physician Co-Signing Physician Notes PA Supervision Note: I did not personally see or examine the patient today, but I verified all li points of GUADALUPE Jimenez's assessment and plan with the following exceptions/additions: None Subjective Pt. is doing well, pain well controlled. Is passing gas, no BM yet. Will remove melgar today. Plan for rehab placement. Review of Systems Review of Systems: All systems reviewed & are unremarkable except as noted in HPI & below Constitutional: no fever, no chills, no fatigue and no weakness Respiratory: no cough, no dyspnea and no dyspnea on exertion Cardiovascular: no chest pain, no palpitations and no edema Gastrointestinal: + constipation; no abdominal pain and no nausea Genitourinary: no difficulty urinating Musculoskeletal: + joint pain; no back pain Integumentary: no non-healing lesions Physical Exam Physical Exam: General: Resting comfortably HEENT: NC/AT; PERRLA with EOMI; [place] conjunctiva, MMM. No erythema of posterior pharynx Neck: Supple and nontender Cardiac: RRR Lungs: CTA bilaterally Abdomen: Bowel normoactive X 4; Nontender to palpation Extremities: Warm. No edema present. Dressing in place over right hip, no bleeding noted. Neuro: No focal weakness Skin: No rash Results & Data Vital Signs (Past 12 Hours) Vital Signs Temp Pulse Resp BP Pulse Ox 08/25/19 15:19 37.1 C 87 17 118/67 95 08/25/19 07:27 36.7 C 70 16 144/81 H 91 Laboratory Results 08/25/19 08/25/19 Range/Units 05:08 05:08 WBC 7.61 (4.8-10.8) K/uL RBC 3.57 L (4.2-5.4) M/uL Hgb 11.3 L (12.0-16.0) g/dL Hct 33.7 L (37-47) % MCV 94.4 (80-100) fL MCH 31.7 (25-34) pg MCHC 33.5 (32-36) g/dL RDW Std Deviation 47.6 H (36.4-46.3) fL RDW Coeff of Isai 13.7 (11.5-14.5) % Plt Count 200 (130-400) K/uL MPV 9.5 (7.4-10.4) fL Sodium 142 (136-145) mmol/L Potassium 3.8 (3.5-5.1) mmol/L Chloride 109 H (98-107) mmol/L Carbon Dioxide 28 (21-32) mmol/L Anion Gap 4.0 (3-11) BUN 9 (7-18) mg/dl Creatinine 0.66 (0.6-1.2) mg/dl Est Cr Clr Drug Dosing 67.3 ml/min Est GFR ( Amer) 100.9 Est GFR (Non-Af Amer) 87.0 BUN/Creatinine Ratio 13.1 (10-20) Glucose 91 (70-99) mg/dl Calcium 8.6 (8.5-10.1) mg/dl PG Care Time/CCT Total # of Minutes Spent Total Time Spent with Patient: Total time spent is greater than 50% in coordination of care (as documented) at patient's floor/unit and/or counseling patient: (1) Fever Fever type: unspecified Qualified Code(s): R50.9 - Fever, unspecified (2) Subcapital fracture of right hip Encounter type: initial encounter Fracture type: closed Qualified Code(s): S72.011A - Unspecified intracapsular fracture of right femur, initial encounter for closed fracture (3) COPD (chronic obstructive pulmonary disease) COPD type: unspecified COPD Qualified Code(s): J44.9 - Chronic obstructive pulmonary disease, unspecified
[2019-08-25] MEDS: DOCUSATE SODIUM 100 MG CAP PO SCH (20:36)
[2019-08-26 05:48] LABS: Hematocrit (blood only) 33.6 % (37-47); Hemoglobin 10.8 g/dL (12.0-16.0); Mean Corpuscular Hemoglobin 30.8 pg (25-34); Mean Corpuscular Hgb Conc 32.1 g/dL (32-36); Mean Corpuscular Volume 95.7 fL (80-100); Mean Platelet Volume 9.6 fL (7.4-10.4); Platelet Count 240 K/uL (130-400); RDW Coefficient of Variation 13.5 % (11.5-14.5); RDW Standard Deviation 47.2 fL (36.4-46.3); Red Blood Count 3.51 M/uL (4.2-5.4); White Blood Count 6.81 K/uL (4.8-10.8)
[2019-08-26 06:11] LABS: BUN Creatinine Ratio 17.4 (10-20); Calcium 8.5 mg/dl (8.5-10.1); Creatinine Clr Calc Pharmacy 65.3 ml/min; Est GFR (African American) 99.9; Est GFR (Non-African American) 86.2; Potassium 3.7 mmol/L (3.5-5.1)
[2019-08-26] MEDS: ASPIRIN 81 MG ECTAB PO SCH (09:23)
[2019-08-26] MEDS: CHOLECALCIFEROL 1,000 UNITS TAB PO SCH (09:23)
[2019-08-26] MEDS: ESCITALOPRAM OXALATE 20 MG TAB PO SCH (09:23)
[2019-08-26] MEDS: OXYCODONE HCL IR 5 MG TAB (IMMEDIATE RELEASE) PO PRN (10:30)
--- NOTE | 2019-08-26 11:24 | Discharge Summary ---
Date of Service August 26, 2019 Admission HPI Per Admitting Provider Diamond Benson is a pleasant 74-year-old female with history of stable COPD, non-Hodgkin lymphoma in remission x2 years, depression/anxiety presenting with right hip fracture. Patient reports that she fell out of bed today and landed on her right hip. She was unable to get up or bear weight. She thinks that she may have passed out. Denies chest pain/palpitations/dizziness. No additional complaints at this time. ER course: Fentanyl, morphine, Zofran Principal Diagnosis Right hip fracture Discharge Exam Constitutional WD/WN, vitals as above Eyes + anicteric sclerae Neck trachea midline, no thyromegaly Respiratory normal respiratory effort, lungs clear to auscultation Cardiovascular RRR, no murmur, no edema Chest (Breasts) Chest: normal inspection of chest Gastrointestinal (Abdomen) normal bowel sounds, soft, nontender, no hepatosplenomegaly Musculoskeletal Extremities: + extremities abnormal to inspection (rt hip with dressing in place), no cyanosis and no clubbing Skin no rashes, warm and dry Neurologic moves all extremities and awake; no focal motor deficits Psychiatric A+Ox3, euthymic affect Lymphatic no lymphedema Discharge Data Allergies Allergy/AdvReac Type Severity Reaction Status Date / Time iodine Allergy Severe RASH AND Verified 08/22/19 12:15 DIFFICULTY BREATHING Sulfa (Sulfonamide Allergy Severe RASH, Verified 08/22/19 12:15 Antibiotics) THROAT CLOSES amoxicillin AdvReac Mild SEVERE ABD Verified 08/22/19 12:15 PAIN/DIARHEA clavulanic acid AdvReac Mild SEVERE ABD Verified 08/22/19 12:15 PAIN/DIARHEA Consultations 08/22/19 14:31 ED Decision to Admit Stat 08/22/19 16:19 Consult Case Management - Discharge Planning Routine 08/22/19 18:00 Consult Orthopedic Surgery Routine 08/24/19 12:28 Consult Case Management - Discharge Planning Routine Procedures Performed Operation Date: 08/23/19 12:00 Actual Procedures p Open reduction internal fixation Hip Cannulated Screw(Right) - Didier Avila, Ordered Studies 08/22/19 11:06 CT cervical spine wo con Stat CT head/brain wo con Stat 08/23/19 07:00 FL fluoroscopy <1hr Routine FL hip RT 2-3V Routine CXR Femur xray Hip xray ECHO Hospital Course (1) Subcapital fracture of right hip: - XR showed slightly impacted subcapital fx R hip -- results of falling from bed possibly from syncopal episode. - EKG negative; TTE showed preserved EF, no valvular abnormalities. - Ortho consulted, s/p ORIF on 08/23/2019. - DVT ppx with ASA 81 mg BID. - Monitor CBC to evaluate for acute blood loss anemia - H/H is stable at 10.8 - PT/OT -- discharge to [facility] (2) Fever: - Patient with fever on admission and peaked 38.5 - no evidence of infection at this time, no UTI, no PNA - Tylenol prn. Has been afebrile >72 hours. (3) COPD (chronic obstructive pulmonary disease): - No acute exacerbation noted at this time. Not hypoxic - Albuterol prn. 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 - Completed 6 cycles R-CHOP, last dose in Sep 2017. - Follows with Dr. Medina. (5) Anxiety: - Lexapro 20 mg daily; Ativan PRN DVT ppx: ASA 81 mg BID; SCDs Dispo: PT/OT evaluation - discharge to [facility] today Total Time Total Time Spent Total Time Spent (In Minutes): 35 min Total Time Includes: Examination of the Patient, Discharge Planning and Medication Reconciliation Discharge Plan Discharge Items Patient Disposition: Transfer Inpatient Rehab Fac Reason For Visit: HIP FRACTURE Discharge Diagnosis: Hip Fracture Condition on Discharge: Good Goals: You have been hospitalized for an acute medical problem. During your stay at [facility], we have made an effort to correct the problem that brought you to the hospital while keeping you as comfortable as possible. M edications were used to bring your condition under control and your discharge instructions will include directions for any medications you should take after leaving the hospital. Please make sure you see your Primary Care Provider as part of your follow up plan. Activity: As commented below Activity Comment: per PT/OT recs. Weightbearing: Right toe touch Weightbearing Comment: Right toe touch for 1 month. Non-emergency contact: Primary Care Provider and Surgeon Call non-emergency contact if: you have any medication questions, your symptoms worsen, you have a fever, your wound has increased redness, your wound has increased drainage and your wound pain has increased Follow-up/Referrals: Salome Salinas CRNP [Primary Care Provider] - Diet: Regular Addtl Attending Provider Instructions: 1. Subcapital fracture of the right hip * S/p ORIF on 08/23/2019. * Aspirin 81 mg twice daily for DVT prophylaxis. * Toe touch weight bearing on the right lower extremity for 1 month. * You will be discharged to [facility] for PT/OT. * Please schedule follow up with orthopedics in 2 weeks, around POD#14. Pending Studies at Discharge: No Stand-Alone Forms: My [facility] Skilled Items Patient informed of condition?: Yes DNR: No Discharge Level of Care: Acute rehab Communicable Disease: No Discharge Prognosis: Improving Lines: None Urinary Catheter: No Medications and DC Order Prescriptions: New aspirin [Ecotrin Low Strength] 81 mg Tablet,Delayed Release (Dr/Ec) 81 mg PO BID 1 Days Qty: 2 RF: 0 oxycodone 5 mg Tablet 5 mg PO Q4H PRN (Reason: pain) 1 Days Qty: 1 RF: 0 acetaminophen [Mapap (acetaminophen)] 325 mg Tablet 650 mg PO Q4H PRN (Reason: pain) Qty: 30 RF: 0 polyethylene glycol 3350 [Miralax] 17 gram Powder In Packet 17 g PO BID Qty: 30 RF: 0 Continued lorazepam 0.5 mg tablet 0.5 mg PO Q8H PRN (Reason: Anxiety) Qty: 60 RF: 3 fluticasone propionate [Flonase Allergy Relief] 50 mcg/actuation spray,suspension See Rx Instructions INTRANASAL DAILY Qty: 16 RF: 5 escitalopram oxalate 20 mg tablet 20 mg PO DAILY Qty: 90 RF: 0 albuterol sulfate [Ventolin HFA] 90 mcg/actuation HFA aerosol inhaler 2 puff INHALATION QID PRN (Reason: sob) Qty: 18 RF: 4 tramadol 50 mg tablet 100 mg PO Q6H PRN (Reason: Pain) Qty: 240 RF: 2 ergocalciferol (vitamin D2) 50,000 unit capsule 50,000 units PO WEEKLY 56 Days Qty: 8 RF: 0 cholecalciferol (vitamin D3) 2,000 unit tablet 2,000 units PO DAILY Qty: 30 RF: 0 albuterol sulfate 0.63 mg/3 mL Solution For Nebulization 0.63 mg INHALATION QID PRN (Reason: sob) RF: 0 docusate sodium [Colace] 100 mg Capsule 200 mg PO HS RF: 0 Discontinued ibuprofen 200 mg Capsule 400 - 800 mg PO QID PRN (Reason: Pain) RF: 0 Discharge Orders: Discharge Order (Routine); Ordered 08/26/19 Ordered By: Celia Cade/Other Patient Handouts: Fx Femur ORIF Admission Data Admit Date/Time: 08/22/19 14:33 Attending Provider: Celia Driver Admit Provider: Leona Moore Primary Care Provider: Salome Salinas Other Providers: Leona Moore ; Didier Avila ; [facility]
== END 2019-08-26 14:01 | DRG 481 ==
LOC: ED 10:35 → SUATTDRO 14:33 → 3N 14:33